=== PATIENT | female | born 1960 ===

== ENCOUNTER 2022-02-06 15:17 | Outpatient (REF) | payer OTHER, SELFPAY ==
[2022-02-06 15:34] LABS: Appearance Urine CLEAR; Color Urine YELLOW; Glucose Urine UA NEG (NEG); Leukocyte Esterase Urine 3+ (NEG); Nitrite Urine POS (NEG); PH 6.5 (5.0-8.0); Specific Gravity - Urine <= 1.005 (1.005-1.025); Urine Blood TRACE (NEG); Urine Ketones NEG (NEG); Urine Protein NEG (NEG-TRACE)
[2022-02-06 15:53] LABS: Bacteria Urine 2+ /LPF; Calcium Oxalate Crystals Urine 1+ /LPF; Mucus Urine TRACE /LPF; Squamous Epithelial Cell Urine TRACE /LPF
[2022-02-06 15:54] LABS: WBC Clumps Urine NOTED
== END 2022-02-06 15:18 | disposition home or self-care (01) ==
LOC: HO.LNP 15:17
PROVIDERS: Visit Provider Family Medicine
DX: R41.82 Altered mental status, unspecified (principal)
CPT/HCPCS: 81001; 87086

== ENCOUNTER 2022-02-11 06:13 | Outpatient (REF) | payer OTHER, SELFPAY ==
[2022-02-11 06:18] LABS: MANUAL DIFF FLAG NO
[2022-02-11 06:49] LABS: Basophils Percent Auto 0.3 % (0-2); Eosinophils Absolute Auto 0.2 X10*3/uL (0.0-0.4); Eosinophils Percent Auto 3.6 % (0-4); Hematocrit 33.7 % (37.0-47.0); Hemoglobin 10.1 g/dl (12.0-16.0); Imm Gran Abs Auto 0.03 X10*3/uL (0.00-0.03); Imm Gran Pct Auto 0.5 % (0.0-0.4); Lymphocytes Absolute Auto 1.4 X10*3/uL (1.2-4.9); Lymphocytes Percent Auto 20.4 % (20-40); Mean Corpuscular Hemoglobin 24.4 pg (27.0-33.0); Mean Corpuscular Volume 81.4 fL (80.0-98.0); Mean Platelet Volume 10.6 fL (9.4-12.3); Monocytes Absolute Auto 0.5 X10*3/uL (0.1-1.2); Neutrophils Absolute Auto 4.5 x10*3/uL (2.0-8.3); Neutrophils Percent Auto 67.2 % (45-73); Platelet Count 286 X10*3/uL (160-400); Red Blood Count 4.14 X10*6/uL (4.20-5.50); White Blood Count 6.6 X10*3/uL (4.8-10.8)
[2022-02-11 07:03] LABS: Anion Gap 12 (12-20); Blood Urea Nitrogen 13 mg/dL (9-16); Carbon Dioxide 28 mmol/L (22-29); Chloride 105 mmol/L (96-108); Estimated Glomerular Filt Rate > 60; Glucose Random 93 mg/dL (60-115); Potassium 4.8 mmol/L (3.3-5.1); Sodium 140 mmol/L (135-145)
== END 2022-02-11 06:14 | disposition home or self-care (01) ==
LOC: HO.MMNH2L 06:13
PROVIDERS: Visit Provider Family Medicine
DX: I10 Essential (primary) hypertension (principal)
CPT/HCPCS: 36415; 80048; 85025

== ENCOUNTER 2022-02-16 06:21 | Outpatient (REF) | payer OTHER, SELFPAY ==
[2022-02-16 06:35] LABS: MANUAL DIFF FLAG NO
[2022-02-16 06:55] LABS: Basophils Percent Auto 0.6 % (0-2); Eosinophils Absolute Auto 0.2 X10*3/uL (0.0-0.4); Eosinophils Percent Auto 3.2 % (0-4); Hemoglobin 10.7 g/dl (12.0-16.0); Imm Gran Abs Auto 0.02 X10*3/uL (0.00-0.03); Imm Gran Pct Auto 0.3 % (0.0-0.4); Lymphocytes Absolute Auto 1.4 X10*3/uL (1.2-4.9); Lymphocytes Percent Auto 19.6 % (20-40); Mean Corpuscular HGB Conc 30.6 g/dl (31.0-35.0); Mean Corpuscular Hemoglobin 24.8 pg (27.0-33.0); Mean Corpuscular Volume 81.2 fL (80.0-98.0); Mean Platelet Volume 10.4 fL (9.4-12.3); Monocytes Absolute Auto 0.5 X10*3/uL (0.1-1.2); Monocytes Percent Auto 7.2 % (2-11); Neutrophils Percent Auto 69.1 % (45-73); Platelet Count 301 X10*3/uL (160-400); Red Blood Count 4.31 X10*6/uL (4.20-5.50); Red Cell Distribution Width 20.8 % (11.0-16.0); White Blood Count 7.3 X10*3/uL (4.8-10.8)
[2022-02-16 07:23] LABS: Anion Gap 14 (12-20); Blood Urea Nitrogen 14 mg/dL (9-16); Calcium 9.6 mg/dL (8.4-10.2); Carbon Dioxide 25 mmol/L (22-29); Chloride 104 mmol/L (96-108); Estimated Glomerular Filt Rate > 60; Glucose Random 95 mg/dL (60-115); Potassium 4.2 mmol/L (3.3-5.1); Sodium 139 mmol/L (135-145)
[2022-02-16 16:08] LABS: Appearance Urine CLEAR; Color Urine YELLOW; Glucose Urine UA NEG (NEG); Leukocyte Esterase Urine 2+ (NEG); Nitrite Urine NEG (NEG); Urine Blood 1+ (NEG); Urine Ketones NEG (NEG); Urine Protein NEG (NEG-TRACE)
[2022-02-16 16:18] LABS: Amorphous Sediment Urine 1+ /LPF; Squamous Epithelial Cell Urine 1+ /LPF
[2022-02-16 16:20] LABS: Bacteria Urine 1+ /LPF
== END 2022-02-16 06:22 | disposition home or self-care (01) ==
LOC: HO.MMNH2L 06:21
PROVIDERS: Visit Provider Family Medicine
DX: R41.82 Altered mental status, unspecified (principal)
CPT/HCPCS: 36415; 80048; 81001; 81003; 85025; 87086; 87088; 87186

== ENCOUNTER 2022-02-23 07:00 | Outpatient (REF) | payer OTHER, SELFPAY ==
[2022-02-23 06:35] LABS: Hematocrit 34.5 % (37.0-47.0); Hemoglobin 10.5 g/dl (12.0-16.0); Mean Corpuscular HGB Conc 30.4 g/dl (31.0-35.0); Mean Corpuscular Hemoglobin 24.7 pg (27.0-33.0); Mean Corpuscular Volume 81.2 fL (80.0-98.0); Platelet Count 284 X10*3/uL (160-400); Red Blood Count 4.25 X10*6/uL (4.20-5.50); Red Cell Distribution Width 19.7 % (11.0-16.0); White Blood Count 7.5 X10*3/uL (4.8-10.8)
[2022-02-23 07:11] LABS: Anion Gap 13 (12-20); Blood Urea Nitrogen 10 mg/dL (9-16); Calcium 9.2 mg/dL (8.4-10.2); Carbon Dioxide 27 mmol/L (22-29); Chloride 106 mmol/L (96-108); Estimated Glomerular Filt Rate > 60; Glucose Random 86 mg/dL (60-115); Potassium 4.1 mmol/L (3.3-5.1); Sodium 142 mmol/L (135-145)
== END 2022-02-23 07:01 | disposition home or self-care (01) ==
LOC: HO.MMNH2L 07:00
PROVIDERS: Visit Provider Family Medicine
DX: I10 Essential (primary) hypertension (principal)
CPT/HCPCS: 36415; 80048; 85027

== ENCOUNTER 2022-03-02 06:21 | Outpatient (REF) | payer OTHER, SELFPAY ==
[2022-03-02 06:24] LABS: MANUAL DIFF FLAG NO
[2022-03-02 06:45] LABS: Basophils Percent Auto 0.4 % (0-2); Eosinophils Absolute Auto 0.2 X10*3/uL (0.0-0.4); Eosinophils Percent Auto 3.1 % (0-4); Hemoglobin 10.3 g/dl (12.0-16.0); Imm Gran Abs Auto 0.03 X10*3/uL (0.00-0.03); Imm Gran Pct Auto 0.4 % (0.0-0.4); Lymphocytes Absolute Auto 1.6 X10*3/uL (1.2-4.9); Lymphocytes Percent Auto 23.9 % (20-40); Mean Corpuscular HGB Conc 30.3 g/dl (31.0-35.0); Mean Corpuscular Hemoglobin 24.3 pg (27.0-33.0); Mean Corpuscular Volume 80.4 fL (80.0-98.0); Mean Platelet Volume 10.7 fL (9.4-12.3); Monocytes Absolute Auto 0.5 X10*3/uL (0.1-1.2); Monocytes Percent Auto 7.3 % (2-11); Neutrophils Absolute Auto 4.4 x10*3/uL (2.0-8.3); Neutrophils Percent Auto 64.9 % (45-73); Platelet Count 247 X10*3/uL (160-400); Red Blood Count 4.23 X10*6/uL (4.20-5.50); Red Cell Distribution Width 19.2 % (11.0-16.0); White Blood Count 6.8 X10*3/uL (4.8-10.8)
[2022-03-02 07:15] LABS: Anion Gap 12 (12-20); Blood Urea Nitrogen 9 mg/dL (9-16); Calcium 9.3 mg/dL (8.4-10.2); Carbon Dioxide 26 mmol/L (22-29); Chloride 105 mmol/L (96-108); Estimated Glomerular Filt Rate > 60; Glucose Random 94 mg/dL (60-115); Potassium 4.3 mmol/L (3.3-5.1); Sodium 139 mmol/L (135-145)
== END 2022-03-02 06:22 | disposition home or self-care (01) ==
LOC: HO.MMNH2L 06:21
PROVIDERS: Visit Provider Family Medicine
DX: I10 Essential (primary) hypertension (principal)
CPT/HCPCS: 36415; 80048; 85025

== ENCOUNTER 2022-03-09 06:41 | Outpatient (REF) | payer OTHER, SELFPAY ==
[2022-03-09 06:33] LABS: MANUAL DIFF FLAG NO
[2022-03-09 07:01] LABS: Anion Gap 14 (12-20); Basophils Percent Auto 0.5 % (0-2); Blood Urea Nitrogen 12 mg/dL (9-16); Calcium 9.3 mg/dL (8.4-10.2); Carbon Dioxide 26 mmol/L (22-29); Chloride 107 mmol/L (96-108); Eosinophils Absolute Auto 0.3 X10*3/uL (0.0-0.4); Eosinophils Percent Auto 4.7 % (0-4); Estimated Glomerular Filt Rate > 60; Glucose Random 93 mg/dL (60-115); Hematocrit 34.7 % (37.0-47.0); Hemoglobin 10.6 g/dl (12.0-16.0); Imm Gran Abs Auto 0.01 X10*3/uL (0.00-0.03); Imm Gran Pct Auto 0.2 % (0.0-0.4); Lymphocytes Absolute Auto 1.9 X10*3/uL (1.2-4.9); Mean Corpuscular HGB Conc 30.5 g/dl (31.0-35.0); Mean Corpuscular Hemoglobin 24.5 pg (27.0-33.0); Mean Corpuscular Volume 80.3 fL (80.0-98.0); Monocytes Absolute Auto 0.5 X10*3/uL (0.1-1.2); Monocytes Percent Auto 9.1 % (2-11); Neutrophils Absolute Auto 3.2 x10*3/uL (2.0-8.3); Neutrophils Percent Auto 53.5 % (45-73); Platelet Count 241 X10*3/uL (160-400); Potassium 4.2 mmol/L (3.3-5.1); Red Blood Count 4.32 X10*6/uL (4.20-5.50); Red Cell Distribution Width 17.9 % (11.0-16.0); Sodium 143 mmol/L (135-145); White Blood Count 5.9 X10*3/uL (4.8-10.8)
== END 2022-03-09 06:42 | disposition home or self-care (01) ==
LOC: HO.MMNH2L 06:41
PROVIDERS: Visit Provider Family Medicine
DX: I10 Essential (primary) hypertension (principal)
CPT/HCPCS: 36415; 80048; 85025

== ENCOUNTER 2022-03-16 06:40 | Outpatient (REF) | payer OTHER, SELFPAY ==
[2022-03-16 06:19] LABS: MANUAL DIFF FLAG NO
[2022-03-16 07:16] LABS: Basophils Percent Auto 0.5 % (0-2); Eosinophils Absolute Auto 0.2 X10*3/uL (0.0-0.4); Eosinophils Percent Auto 3.8 % (0-4); Hemoglobin 9.8 g/dl (12.0-16.0); Imm Gran Abs Auto 0.01 X10*3/uL (0.00-0.03); Imm Gran Pct Auto 0.2 % (0.0-0.4); Lymphocytes Absolute Auto 1.7 X10*3/uL (1.2-4.9); Lymphocytes Percent Auto 31.5 % (20-40); Mean Corpuscular HGB Conc 30.6 g/dl (31.0-35.0); Mean Corpuscular Hemoglobin 24.9 pg (27.0-33.0); Mean Corpuscular Volume 81.4 fL (80.0-98.0); Mean Platelet Volume 11.4 fL (9.4-12.3); Monocytes Absolute Auto 0.4 X10*3/uL (0.1-1.2); Monocytes Percent Auto 7.9 % (2-11); Neutrophils Absolute Auto 3.1 x10*3/uL (2.0-8.3); Neutrophils Percent Auto 56.1 % (45-73); Platelet Count 216 X10*3/uL (160-400); Red Blood Count 3.93 X10*6/uL (4.20-5.50); Red Cell Distribution Width 17.5 % (11.0-16.0); White Blood Count 5.5 X10*3/uL (4.8-10.8)
[2022-03-16 07:24] LABS: Anion Gap 15 (12-20); Blood Urea Nitrogen 12 mg/dL (9-16); Calcium 8.9 mg/dL (8.4-10.2); Carbon Dioxide 23 mmol/L (22-29); Chloride 107 mmol/L (96-108); Estimated Glomerular Filt Rate > 60; Glucose Random 81 mg/dL (60-115); Potassium 4.2 mmol/L (3.3-5.1); Sodium 141 mmol/L (135-145)
== END 2022-03-16 06:41 | disposition home or self-care (01) ==
LOC: HO.MMNH2L 06:40
PROVIDERS: Visit Provider Family Medicine
DX: I10 Essential (primary) hypertension (principal)
CPT/HCPCS: 36415; 80048; 85025

== ENCOUNTER 2022-03-23 06:24 | Outpatient (REF) | payer OTHER, SELFPAY ==
[2022-03-23 06:13] LABS: MANUAL DIFF FLAG NO
[2022-03-23 06:20] LABS: Basophils Percent Auto 0.5 % (0-2); Eosinophils Absolute Auto 0.2 X10*3/uL (0.0-0.4); Eosinophils Percent Auto 3.9 % (0-4); Hematocrit 31.4 % (37.0-47.0); Hemoglobin 9.6 g/dl (12.0-16.0); Imm Gran Abs Auto 0.02 X10*3/uL (0.00-0.03); Imm Gran Pct Auto 0.4 % (0.0-0.4); Lymphocytes Absolute Auto 1.8 X10*3/uL (1.2-4.9); Lymphocytes Percent Auto 32.2 % (20-40); Mean Corpuscular HGB Conc 30.6 g/dl (31.0-35.0); Mean Corpuscular Volume 81.8 fL (80.0-98.0); Mean Platelet Volume 10.5 fL (9.4-12.3); Monocytes Absolute Auto 0.5 X10*3/uL (0.1-1.2); Monocytes Percent Auto 8.4 % (2-11); Neutrophils Absolute Auto 3.1 x10*3/uL (2.0-8.3); Neutrophils Percent Auto 54.6 % (45-73); Platelet Count 232 X10*3/uL (160-400); Red Blood Count 3.84 X10*6/uL (4.20-5.50); Red Cell Distribution Width 16.7 % (11.0-16.0); White Blood Count 5.6 X10*3/uL (4.8-10.8)
[2022-03-23 07:09] LABS: Anion Gap 14 (12-20); Blood Urea Nitrogen 10 mg/dL (9-16); Carbon Dioxide 26 mmol/L (22-29); Chloride 107 mmol/L (96-108); Estimated Glomerular Filt Rate > 60; Glucose Random 93 mg/dL (60-115); Potassium 4.3 mmol/L (3.3-5.1); Sodium 143 mmol/L (135-145)
== END 2022-03-23 06:25 | disposition home or self-care (01) ==
LOC: HO.MMNH2L 06:24
PROVIDERS: Visit Provider Family Medicine
DX: I10 Essential (primary) hypertension (principal)
CPT/HCPCS: 36415; 80048; 85025

== ENCOUNTER 2022-03-30 06:31 | Outpatient (REF) | payer OTHER, SELFPAY ==
[2022-03-30 06:17] LABS: MANUAL DIFF FLAG NO
[2022-03-30 06:29] LABS: Basophils Percent Auto 0.4 % (0-2); Eosinophils Absolute Auto 0.1 X10*3/uL (0.0-0.4); Hematocrit 29.7 % (37.0-47.0); Imm Gran Abs Auto 0.01 X10*3/uL (0.00-0.03); Imm Gran Pct Auto 0.2 % (0.0-0.4); Lymphocytes Absolute Auto 1.4 X10*3/uL (1.2-4.9); Lymphocytes Percent Auto 29.7 % (20-40); Mean Corpuscular HGB Conc 30.3 g/dl (31.0-35.0); Mean Corpuscular Hemoglobin 24.8 pg (27.0-33.0); Mean Corpuscular Volume 81.8 fL (80.0-98.0); Mean Platelet Volume 10.6 fL (9.4-12.3); Monocytes Absolute Auto 0.5 X10*3/uL (0.1-1.2); Monocytes Percent Auto 10.6 % (2-11); Neutrophils Absolute Auto 2.7 x10*3/uL (2.0-8.3); Neutrophils Percent Auto 56.1 % (45-73); Platelet Count 244 X10*3/uL (160-400); Red Blood Count 3.63 X10*6/uL (4.20-5.50); White Blood Count 4.7 X10*3/uL (4.8-10.8)
[2022-03-30 06:49] LABS: Anion Gap 13 (12-20); Blood Urea Nitrogen 10 mg/dL (9-16); Calcium 9.3 mg/dL (8.4-10.2); Carbon Dioxide 26 mmol/L (22-29); Chloride 108 mmol/L (96-108); Estimated Glomerular Filt Rate > 60; Glucose Random 88 mg/dL (60-115); Potassium 4.4 mmol/L (3.3-5.1); Sodium 143 mmol/L (135-145)
== END 2022-03-30 06:32 | disposition home or self-care (01) ==
LOC: HO.MMNH2L 06:31
PROVIDERS: Visit Provider Family Medicine
DX: I10 Essential (primary) hypertension (principal)
CPT/HCPCS: 36415; 80048; 85025

== ENCOUNTER 2022-04-06 06:30 | Outpatient (REF) | payer OTHER, SELFPAY ==
[2022-04-06 06:24] LABS: MANUAL DIFF FLAG NO
[2022-04-06 06:45] LABS: Basophils Percent Auto 0.4 % (0-2); Eosinophils Absolute Auto 0.1 X10*3/uL (0.0-0.4); Eosinophils Percent Auto 2.6 % (0-4); Hematocrit 25.7 % (37.0-47.0); Hemoglobin 7.9 g/dl (12.0-16.0); Imm Gran Abs Auto 0.01 X10*3/uL (0.00-0.03); Imm Gran Pct Auto 0.2 % (0.0-0.4); Lymphocytes Absolute Auto 1.8 X10*3/uL (1.2-4.9); Lymphocytes Percent Auto 33.5 % (20-40); Mean Corpuscular HGB Conc 30.7 g/dl (31.0-35.0); Mean Corpuscular Volume 81.3 fL (80.0-98.0); Mean Platelet Volume 10.6 fL (9.4-12.3); Monocytes Absolute Auto 0.4 X10*3/uL (0.1-1.2); Monocytes Percent Auto 7.6 % (2-11); Neutrophils Percent Auto 55.7 % (45-73); Platelet Count 252 X10*3/uL (160-400); Red Blood Count 3.16 X10*6/uL (4.20-5.50); Red Cell Distribution Width 15.5 % (11.0-16.0); White Blood Count 5.3 X10*3/uL (4.8-10.8)
[2022-04-06 06:49] LABS: Anion Gap 12 (12-20); Blood Urea Nitrogen 10 mg/dL (9-16); Calcium 8.8 mg/dL (8.4-10.2); Carbon Dioxide 27 mmol/L (22-29); Chloride 108 mmol/L (96-108); Estimated Glomerular Filt Rate > 60; Glucose Random 94 mg/dL (60-115); Potassium 4.4 mmol/L (3.3-5.1); Sodium 143 mmol/L (135-145)
== END 2022-04-06 06:31 | disposition home or self-care (01) ==
LOC: HO.MMNH2L 06:30
PROVIDERS: Visit Provider Family Medicine
DX: I10 Essential (primary) hypertension (principal)
CPT/HCPCS: 36415; 80048; 85025

== ENCOUNTER 2022-04-14 06:22 | Outpatient (REF) | payer OTHER, SELFPAY ==
[2022-04-14 06:26] LABS: MANUAL DIFF FLAG NO
[2022-04-14 06:47] LABS: Basophils Percent Auto 0.2 % (0-2); Eosinophils Absolute Auto 0.1 X10*3/uL (0.0-0.4); Eosinophils Percent Auto 2.3 % (0-4); Hematocrit 26.1 % (37.0-47.0); Hemoglobin 7.7 g/dl (12.0-16.0); Imm Gran Abs Auto 0.02 X10*3/uL (0.00-0.03); Imm Gran Pct Auto 0.4 % (0.0-0.4); Lymphocytes Absolute Auto 1.5 X10*3/uL (1.2-4.9); Lymphocytes Percent Auto 29.7 % (20-40); Mean Corpuscular HGB Conc 29.5 g/dl (31.0-35.0); Mean Corpuscular Hemoglobin 23.9 pg (27.0-33.0); Mean Corpuscular Volume 81.1 fL (80.0-98.0); Mean Platelet Volume 10.6 fL (9.4-12.3); Monocytes Absolute Auto 0.4 X10*3/uL (0.1-1.2); Monocytes Percent Auto 8.1 % (2-11); Neutrophils Absolute Auto 3.1 x10*3/uL (2.0-8.3); Neutrophils Percent Auto 59.3 % (45-73); Platelet Count 251 X10*3/uL (160-400); Red Blood Count 3.22 X10*6/uL (4.20-5.50); Red Cell Distribution Width 14.9 % (11.0-16.0); White Blood Count 5.2 X10*3/uL (4.8-10.8)
[2022-04-14 07:27] LABS: Anion Gap 14 (12-20); Blood Urea Nitrogen 18 mg/dL (9-16); Calcium 8.8 mg/dL (8.4-10.2); Carbon Dioxide 23 mmol/L (22-29); Chloride 108 mmol/L (96-108); Estimated Glomerular Filt Rate > 60; Glucose Random 89 mg/dL (60-115); Potassium 4.2 mmol/L (3.3-5.1); Sodium 141 mmol/L (135-145)
== END 2022-04-14 06:23 | disposition home or self-care (01) ==
LOC: HO.MMNH2L 06:22
PROVIDERS: Visit Provider Family Medicine
DX: I10 Essential (primary) hypertension (principal)
CPT/HCPCS: 36415; 80048; 85025

== ENCOUNTER 2022-04-20 07:04 | Outpatient (REF) | payer OTHER, SELFPAY ==
[2022-04-20 06:52] LABS: MANUAL DIFF FLAG NO
[2022-04-20 07:40] LABS: Basophils Percent Auto 0.2 % (0-2); Eosinophils Absolute Auto 0.1 X10*3/uL (0.0-0.4); Eosinophils Percent Auto 2.5 % (0-4); Hematocrit 21.5 % (37.0-47.0); Imm Gran Abs Auto 0.02 X10*3/uL (0.00-0.03); Imm Gran Pct Auto 0.4 % (0.0-0.4); Lymphocytes Absolute Auto 1.4 X10*3/uL (1.2-4.9); Lymphocytes Percent Auto 29.2 % (20-40); Mean Corpuscular HGB Conc 30.2 g/dl (31.0-35.0); Mean Corpuscular Hemoglobin 24.2 pg (27.0-33.0); Mean Corpuscular Volume 79.9 fL (80.0-98.0); Mean Platelet Volume 10.8 fL (9.4-12.3); Monocytes Absolute Auto 0.4 X10*3/uL (0.1-1.2); Monocytes Percent Auto 8.4 % (2-11); Neutrophils Absolute Auto 2.8 x10*3/uL (2.0-8.3); Neutrophils Percent Auto 59.3 % (45-73); Platelet Count 238 X10*3/uL (160-400); Red Blood Count 2.69 X10*6/uL (4.20-5.50); Red Cell Distribution Width 15.1 % (11.0-16.0); White Blood Count 4.8 X10*3/uL (4.8-10.8)
[2022-04-20 07:55] LABS: Anion Gap 13 (12-20); Blood Urea Nitrogen 13 mg/dL (9-16); Calcium 8.7 mg/dL (8.4-10.2); Carbon Dioxide 26 mmol/L (22-29); Chloride 110 mmol/L (96-108); Estimated Glomerular Filt Rate > 60; Glucose Random 86 mg/dL (60-115); Hemoglobin 6.5 g/dl (12.0-16.0); Potassium 4.6 mmol/L (3.3-5.1); Sodium 144 mmol/L (135-145)
[2022-04-20 10:25] LABS: MANUAL DIFF FLAG NO
[2022-04-20 10:38] LABS: Basophils Percent Auto 0.4 % (0-2); Eosinophils Absolute Auto 0.1 X10*3/uL (0.0-0.4); Eosinophils Percent Auto 1.7 % (0-4); Hematocrit 25.2 % (37.0-47.0); Hemoglobin 7.6 g/dl (12.0-16.0); Imm Gran Abs Auto 0.01 X10*3/uL (0.00-0.03); Imm Gran Pct Auto 0.2 % (0.0-0.4); Lymphocytes Absolute Auto 1.4 X10*3/uL (1.2-4.9); Lymphocytes Percent Auto 26.6 % (20-40); Mean Corpuscular HGB Conc 30.2 g/dl (31.0-35.0); Mean Corpuscular Hemoglobin 23.7 pg (27.0-33.0); Mean Corpuscular Volume 78.5 fL (80.0-98.0); Mean Platelet Volume 10.3 fL (9.4-12.3); Monocytes Absolute Auto 0.3 X10*3/uL (0.1-1.2); Monocytes Percent Auto 6.4 % (2-11); Neutrophils Absolute Auto 3.4 x10*3/uL (2.0-8.3); Neutrophils Percent Auto 64.7 % (45-73); Platelet Count 265 X10*3/uL (160-400); Red Blood Count 3.21 X10*6/uL (4.20-5.50); White Blood Count 5.3 X10*3/uL (4.8-10.8)
== END 2022-04-20 07:05 | disposition home or self-care (01) ==
LOC: HO.MMNH2L 07:04
PROVIDERS: Visit Provider Family Medicine
DX: I10 Essential (primary) hypertension (principal)
CPT/HCPCS: 36415; 80048; 85025

== ENCOUNTER 2022-05-11 07:41 | Outpatient (REF) | payer OTHER, SELFPAY ==
[2022-05-11 07:20] LABS: MANUAL DIFF FLAG NO
[2022-05-11 07:40] LABS: Basophils Percent Auto 0.4 % (0-2); Eosinophils Absolute Auto 0.1 X10*3/uL (0.0-0.4); Eosinophils Percent Auto 1.4 % (0-4); Hematocrit 21.7 % (37.0-47.0); Imm Gran Abs Auto 0.02 X10*3/uL (0.00-0.03); Imm Gran Pct Auto 0.4 % (0.0-0.4); Lymphocytes Absolute Auto 1.3 X10*3/uL (1.2-4.9); Lymphocytes Percent Auto 23.1 % (20-40); Mean Corpuscular HGB Conc 27.2 g/dl (31.0-35.0); Mean Corpuscular Hemoglobin 22.7 pg (27.0-33.0); Mean Corpuscular Volume 83.5 fL (80.0-98.0); Mean Platelet Volume 10.6 fL (9.4-12.3); Monocytes Absolute Auto 0.4 X10*3/uL (0.1-1.2); Monocytes Percent Auto 7.1 % (2-11); Neutrophils Absolute Auto 3.8 x10*3/uL (2.0-8.3); Neutrophils Percent Auto 67.6 % (45-73); Platelet Count 291 X10*3/uL (160-400); White Blood Count 5.6 X10*3/uL (4.8-10.8)
[2022-05-11 08:07] LABS: Anion Gap 12 (12-20); Blood Urea Nitrogen 14 mg/dL (9-16); Calcium 8.6 mg/dL (8.4-10.2); Carbon Dioxide 25 mmol/L (22-29); Chloride 107 mmol/L (96-108); Estimated Glomerular Filt Rate > 60; Glucose Random 93 mg/dL (60-115); Potassium 4.2 mmol/L (3.3-5.1); Sodium 140 mmol/L (135-145)
[2022-05-11 08:38] LABS: Hemoglobin 5.9 g/dl (12.0-16.0)
== END 2022-05-11 07:42 | disposition home or self-care (01) ==
LOC: HO.MMNH2L 07:41
PROVIDERS: Visit Provider Family Medicine
DX: Z86.73 Personal history of transient ischemic attack (TIA), and cerebral infarction without residual deficits (principal)
CPT/HCPCS: 36415; 80048; 85025

== ENCOUNTER 2022-05-12 05:29 | Outpatient (REF) | payer OTHER, SELFPAY ==
[2022-05-12 05:38] LABS: MANUAL DIFF FLAG NO
[2022-05-12 05:42] LABS: Basophils Percent Auto 0.2 % (0-2); Eosinophils Absolute Auto 0.1 X10*3/uL (0.0-0.4); Eosinophils Percent Auto 1.9 % (0-4); Hematocrit 21.1 % (37.0-47.0); Imm Gran Abs Auto 0.01 X10*3/uL (0.00-0.03); Imm Gran Pct Auto 0.2 % (0.0-0.4); Lymphocytes Absolute Auto 1.1 X10*3/uL (1.2-4.9); Mean Corpuscular HGB Conc 27.5 g/dl (31.0-35.0); Mean Corpuscular Volume 83.7 fL (80.0-98.0); Mean Platelet Volume 10.2 fL (9.4-12.3); Monocytes Absolute Auto 0.4 X10*3/uL (0.1-1.2); Monocytes Percent Auto 8.8 % (2-11); Neutrophils Absolute Auto 3.2 x10*3/uL (2.0-8.3); Neutrophils Percent Auto 65.9 % (45-73); Platelet Count 271 X10*3/uL (160-400); Red Blood Count 2.52 X10*6/uL (4.20-5.50); White Blood Count 4.8 X10*3/uL (4.8-10.8)
[2022-05-12 08:05] LABS: Hemoglobin 5.8 g/dl (12.0-16.0)
== END 2022-05-12 05:30 | disposition home or self-care (01) ==
LOC: HO.MMNH2L 05:29
PROVIDERS: Visit Provider Family Medicine
DX: I10 Essential (primary) hypertension (principal); F32.9 Major depressive disorder, single episode, unspecified
CPT/HCPCS: 36415; 85025

== ENCOUNTER 2022-05-18 06:48 | Outpatient (REF) | payer OTHER, SELFPAY ==
[2022-05-18 06:51] LABS: MANUAL DIFF FLAG NO
[2022-05-18 07:17] LABS: Basophils Percent Auto 0.6 % (0-2); Eosinophils Absolute Auto 0.1 X10*3/uL (0.0-0.4); Eosinophils Percent Auto 1.4 % (0-4); Hematocrit 29.5 % (37.0-47.0); Hemoglobin 8.4 g/dl (12.0-16.0); Imm Gran Abs Auto 0.02 X10*3/uL (0.00-0.03); Imm Gran Pct Auto 0.4 % (0.0-0.4); Lymphocytes Absolute Auto 1.3 X10*3/uL (1.2-4.9); Lymphocytes Percent Auto 24.8 % (20-40); Mean Corpuscular HGB Conc 28.5 g/dl (31.0-35.0); Mean Corpuscular Hemoglobin 24.9 pg (27.0-33.0); Mean Corpuscular Volume 87.3 fL (80.0-98.0); Mean Platelet Volume 10.8 fL (9.4-12.3); Monocytes Absolute Auto 0.3 X10*3/uL (0.1-1.2); Monocytes Percent Auto 6.6 % (2-11); Neutrophils Absolute Auto 3.4 x10*3/uL (2.0-8.3); Neutrophils Percent Auto 66.2 % (45-73); Platelet Count 219 X10*3/uL (160-400); Red Blood Count 3.38 X10*6/uL (4.20-5.50); Red Cell Distribution Width 21.6 % (11.0-16.0); White Blood Count 5.2 X10*3/uL (4.8-10.8)
[2022-05-18 07:30] LABS: Alanine Aminotransferase 19 U/L (0-31); Albumin Level 3.8 g/dL (3.5-5.0); Alkaline Phosphatase 107 U/L (39-117); Anion Gap 15 (12-20); Aspartate Amino Transferase 12 U/L (5-31); Bilirubin Total 0.5 mg/dL (0.0-1.0); Blood Urea Nitrogen 7 mg/dL (9-16); Calcium 9.1 mg/dL (8.4-10.2); Carbon Dioxide 25 mmol/L (22-29); Chloride 105 mmol/L (96-108); Estimated Glomerular Filt Rate > 60; Glucose Random 113 mg/dL (60-115); Potassium 3.8 mmol/L (3.3-5.1); Sodium 141 mmol/L (135-145); Total Protein 6.3 g/dL (6.5-8.0)
== END 2022-05-18 06:49 | disposition home or self-care (01) ==
LOC: HO.MMNH2L 06:48
PROVIDERS: Visit Provider Family Medicine
DX: I10 Essential (primary) hypertension (principal)
CPT/HCPCS: 36415; 80053; 85025

== ENCOUNTER 2022-05-27 14:38 | Outpatient (REF) | payer OTHER, SELFPAY ==
[2022-05-27 15:16] LABS: Appearance Urine Clear; Color Urine Yellow; Glucose Urine UA Negative (Negative); Leukocyte Esterase Urine Negative (Negative); Nitrite Urine Negative (Negative); Specific Gravity - Urine <= 1.005 (1.005-1.025); Urine Blood Negative (Negative); Urine Ketones Negative (Negative); Urine Protein Negative (Neg-Trace)
== END 2022-05-27 14:39 | disposition home or self-care (01) ==
LOC: HO.MMNH2L 14:38
PROVIDERS: Visit Provider Family Medicine
DX: R35.0 Frequency of micturition (principal)
CPT/HCPCS: 81003; 87086

== ENCOUNTER 2022-06-08 06:13 | Outpatient (REF) | payer OTHER, SELFPAY ==
[2022-06-08 06:49] LABS: Hematocrit 37.6 % (37.0-47.0); Hemoglobin 11.5 g/dl (12.0-16.0); Mean Corpuscular HGB Conc 30.6 g/dl (31.0-35.0); Mean Corpuscular Hemoglobin 26.6 pg (27.0-33.0); Mean Platelet Volume 10.9 fL (9.4-12.3); Platelet Count 182 X10*3/uL (160-400); Red Blood Count 4.32 X10*6/uL (4.20-5.50); Red Cell Distribution Width 20.1 % (11.0-16.0); White Blood Count 6.7 X10*3/uL (4.8-10.8)
[2022-06-08 07:07] LABS: Anion Gap 14 (12-20); Blood Urea Nitrogen 12 mg/dL (9-16); Calcium 9.5 mg/dL (8.4-10.2); Carbon Dioxide 26 mmol/L (22-29); Chloride 105 mmol/L (96-108); Estimated Glomerular Filt Rate > 60; Glucose Random 87 mg/dL (60-115); Potassium 4.3 mmol/L (3.3-5.1); Sodium 141 mmol/L (135-145)
== END 2022-06-08 06:14 | disposition home or self-care (01) ==
LOC: HO.MMNH2L 06:13
PROVIDERS: Visit Provider Family Medicine
DX: I63.542 Cerebral infarction due to unspecified occlusion or stenosis of left cerebellar artery (principal)
CPT/HCPCS: 36415; 80048; 85027

== ENCOUNTER 2022-08-10 06:23 | Outpatient (REF) | payer OTHER, SELFPAY ==
[2022-08-10 06:23] LABS: MANUAL DIFF FLAG NO
[2022-08-10 06:38] LABS: Basophils Percent Auto 0.4 % (0-2); Eosinophils Absolute Auto 0.1 X10*3/uL (0.0-0.4); Eosinophils Percent Auto 1.6 % (0-4); Hematocrit 39.4 % (37.0-47.0); Hemoglobin 12.9 g/dl (12.0-16.0); Imm Gran Abs Auto 0.02 X10*3/uL (0.00-0.03); Imm Gran Pct Auto 0.4 % (0.0-0.4); Lymphocytes Absolute Auto 1.3 X10*3/uL (1.2-4.9); Lymphocytes Percent Auto 24.5 % (20-40); Mean Corpuscular HGB Conc 32.7 g/dl (31.0-35.0); Mean Corpuscular Hemoglobin 28.9 pg (27.0-33.0); Mean Corpuscular Volume 88.1 fL (80.0-98.0); Mean Platelet Volume 10.5 fL (9.4-12.3); Monocytes Absolute Auto 0.5 X10*3/uL (0.1-1.2); Monocytes Percent Auto 8.2 % (2-11); Neutrophils Absolute Auto 3.5 x10*3/uL (2.0-8.3); Neutrophils Percent Auto 64.9 % (45-73); Platelet Count 152 X10*3/uL (160-400); Red Blood Count 4.47 X10*6/uL (4.20-5.50); Red Cell Distribution Width 16.2 % (11.0-16.0); White Blood Count 5.5 X10*3/uL (4.8-10.8)
[2022-08-10 07:13] LABS: Anion Gap 14 (12-20); Blood Urea Nitrogen 14 mg/dL (9-16); Carbon Dioxide 24 mmol/L (22-29); Chloride 106 mmol/L (96-108); Estimated Glomerular Filt Rate > 60; Glucose Random 86 mg/dL (60-115); Potassium 4.3 mmol/L (3.3-5.1); Sodium 140 mmol/L (135-145)
== END 2022-08-10 06:24 | disposition home or self-care (01) ==
LOC: HO.MMNH2L 06:23
PROVIDERS: Visit Provider Family Medicine
DX: I63.542 Cerebral infarction due to unspecified occlusion or stenosis of left cerebellar artery (principal)
CPT/HCPCS: 36415; 80048; 85025

== ENCOUNTER 2022-09-15 05:47 | Outpatient (REF) | payer OTHER, SELFPAY ==
[2022-09-15 05:51] LABS: MANUAL DIFF FLAG NO
[2022-09-15 06:03] LABS: Basophils Percent Auto 0.3 % (0-2); Eosinophils Absolute Auto 0.1 X10*3/uL (0.0-0.4); Eosinophils Percent Auto 2.3 % (0-4); Hematocrit 36.4 % (37.0-47.0); Hemoglobin 12.3 g/dl (12.0-16.0); Imm Gran Abs Auto 0.02 X10*3/uL (0.00-0.03); Imm Gran Pct Auto 0.3 % (0.0-0.4); Lymphocytes Absolute Auto 1.3 X10*3/uL (1.2-4.9); Mean Corpuscular HGB Conc 33.8 g/dl (31.0-35.0); Mean Corpuscular Hemoglobin 30.9 pg (27.0-33.0); Mean Corpuscular Volume 91.5 fL (80.0-98.0); Mean Platelet Volume 10.7 fL (9.4-12.3); Monocytes Absolute Auto 0.5 X10*3/uL (0.1-1.2); Neutrophils Percent Auto 67.1 % (45-73); Platelet Count 143 X10*3/uL (160-400); Red Blood Count 3.98 X10*6/uL (4.20-5.50); Red Cell Distribution Width 15.2 % (11.0-16.0)
[2022-09-15 06:17] LABS: Alanine Aminotransferase 16 U/L (0-31); Albumin Level 3.8 g/dL (3.5-5.0); Alkaline Phosphatase 89 U/L (39-117); Anion Gap 14 (12-20); Aspartate Amino Transferase 16 U/L (5-31); Bilirubin Total 0.4 mg/dL (0.0-1.0); Blood Urea Nitrogen 14 mg/dL (9-16); Calcium 9.4 mg/dL (8.4-10.2); Carbon Dioxide 26 mmol/L (22-29); Chloride 105 mmol/L (96-108); Estimated Glomerular Filt Rate > 60; Glucose Random 93 mg/dL (60-115); Potassium 4.2 mmol/L (3.3-5.1); Sodium 141 mmol/L (135-145); Total Protein 6.3 g/dL (6.5-8.0)
== END 2022-09-15 05:48 | disposition home or self-care (01) ==
LOC: HO.MMNH2L 05:47
PROVIDERS: Visit Provider Family Medicine
DX: R56.9 Unspecified convulsions (principal)
CPT/HCPCS: 36415; 80053; 85025

== ENCOUNTER 2022-09-21 06:40 | Outpatient (REF) | payer OTHER, SELFPAY ==
[2022-09-21 06:25] LABS: MANUAL DIFF FLAG NO
[2022-09-21 07:26] LABS: Basophils Percent Auto 0.4 % (0-2); Eosinophils Absolute Auto 0.2 X10*3/uL (0.0-0.4); Eosinophils Percent Auto 4.1 % (0-4); Hemoglobin 12.3 g/dl (12.0-16.0); Imm Gran Abs Auto 0.02 X10*3/uL (0.00-0.03); Imm Gran Pct Auto 0.4 % (0.0-0.4); Lymphocytes Absolute Auto 1.8 X10*3/uL (1.2-4.9); Lymphocytes Percent Auto 31.2 % (20-40); Mean Corpuscular HGB Conc 33.2 g/dl (31.0-35.0); Mean Corpuscular Hemoglobin 30.9 pg (27.0-33.0); Monocytes Absolute Auto 0.5 X10*3/uL (0.1-1.2); Monocytes Percent Auto 8.8 % (2-11); Neutrophils Absolute Auto 3.1 x10*3/uL (2.0-8.3); Neutrophils Percent Auto 55.1 % (45-73); Platelet Count 175 X10*3/uL (160-400); Red Blood Count 3.98 X10*6/uL (4.20-5.50); Red Cell Distribution Width 14.7 % (11.0-16.0); White Blood Count 5.7 X10*3/uL (4.8-10.8)
[2022-09-21 07:52] LABS: Anion Gap 14 (12-20); Blood Urea Nitrogen 16 mg/dL (9-16); Calcium 9.3 mg/dL (8.4-10.2); Carbon Dioxide 28 mmol/L (22-29); Chloride 105 mmol/L (96-108); Estimated Glomerular Filt Rate > 60; Glucose Random 80 mg/dL (60-115); Potassium 4.1 mmol/L (3.3-5.1); Sodium 143 mmol/L (135-145)
== END 2022-09-21 06:41 | disposition home or self-care (01) ==
LOC: HO.MMNH2L 06:40
PROVIDERS: Visit Provider Family Medicine
DX: G40.909 Epilepsy, unspecified, not intractable, without status epilepticus (principal)
CPT/HCPCS: 36415; 80048; 85025

== ENCOUNTER 2022-09-28 07:19 | Outpatient (REF) | payer OTHER, SELFPAY ==
[2022-09-28 06:28] LABS: MANUAL DIFF FLAG NO
[2022-09-28 07:04] LABS: Basophils Percent Auto 0.3 % (0-2); Eosinophils Absolute Auto 0.2 X10*3/uL (0.0-0.4); Eosinophils Percent Auto 2.9 % (0-4); Hemoglobin 12.6 g/dl (12.0-16.0); Imm Gran Abs Auto 0.02 X10*3/uL (0.00-0.03); Imm Gran Pct Auto 0.3 % (0.0-0.4); Lymphocytes Absolute Auto 1.5 X10*3/uL (1.2-4.9); Lymphocytes Percent Auto 26.3 % (20-40); Mean Corpuscular HGB Conc 33.2 g/dl (31.0-35.0); Mean Corpuscular Volume 93.6 fL (80.0-98.0); Mean Platelet Volume 10.7 fL (9.4-12.3); Monocytes Absolute Auto 0.5 X10*3/uL (0.1-1.2); Monocytes Percent Auto 8.8 % (2-11); Neutrophils Absolute Auto 3.5 x10*3/uL (2.0-8.3); Neutrophils Percent Auto 61.4 % (45-73); Platelet Count 200 X10*3/uL (160-400); Red Blood Count 4.06 X10*6/uL (4.20-5.50); Red Cell Distribution Width 14.6 % (11.0-16.0); White Blood Count 5.8 X10*3/uL (4.8-10.8)
[2022-09-28 07:33] LABS: Anion Gap 14 (12-20); Blood Urea Nitrogen 11 mg/dL (9-16); Calcium 9.1 mg/dL (8.4-10.2); Carbon Dioxide 27 mmol/L (22-29); Chloride 104 mmol/L (96-108); Estimated Glomerular Filt Rate > 60; Glucose Random 85 mg/dL (60-115); Potassium 4.1 mmol/L (3.3-5.1); Sodium 141 mmol/L (135-145)
== END 2022-09-28 07:20 | disposition home or self-care (01) ==
LOC: HO.MMNH2L 07:19
PROVIDERS: Visit Provider Family Medicine
DX: I10 Essential (primary) hypertension (principal); E03.9 Hypothyroidism, unspecified
CPT/HCPCS: 36415; 80048; 85025

== ENCOUNTER 2022-10-05 06:10 | Outpatient (REF) | payer OTHER, SELFPAY ==
[2022-10-05 06:02] LABS: MANUAL DIFF FLAG NO
[2022-10-05 06:31] LABS: Anion Gap 11 (12-20); Blood Urea Nitrogen 13 mg/dL (9-16); Carbon Dioxide 28 mmol/L (22-29); Chloride 106 mmol/L (96-108); Estimated Glomerular Filt Rate > 60; Glucose Random 90 mg/dL (60-115); Potassium 4.3 mmol/L (3.3-5.1); Sodium 141 mmol/L (135-145)
[2022-10-05 06:36] LABS: Basophils Percent Auto 0.6 % (0-2); Eosinophils Absolute Auto 0.2 X10*3/uL (0.0-0.4); Eosinophils Percent Auto 3.9 % (0-4); Hematocrit 36.4 % (37.0-47.0); Hemoglobin 12.1 g/dl (12.0-16.0); Imm Gran Abs Auto 0.02 X10*3/uL (0.00-0.03); Imm Gran Pct Auto 0.4 % (0.0-0.4); Lymphocytes Absolute Auto 1.5 X10*3/uL (1.2-4.9); Lymphocytes Percent Auto 28.5 % (20-40); Mean Corpuscular HGB Conc 33.2 g/dl (31.0-35.0); Mean Corpuscular Hemoglobin 31.8 pg (27.0-33.0); Mean Corpuscular Volume 95.8 fL (80.0-98.0); Mean Platelet Volume 10.9 fL (9.4-12.3); Monocytes Absolute Auto 0.4 X10*3/uL (0.1-1.2); Monocytes Percent Auto 8.6 % (2-11); Platelet Count 155 X10*3/uL (160-400); Red Cell Distribution Width 14.3 % (11.0-16.0); White Blood Count 5.1 X10*3/uL (4.8-10.8)
== END 2022-10-05 06:11 | disposition home or self-care (01) ==
LOC: HO.MMNH2L 06:10
PROVIDERS: Visit Provider Family Medicine
DX: G40.909 Epilepsy, unspecified, not intractable, without status epilepticus (principal)
CPT/HCPCS: 36415; 80048; 85025

== ENCOUNTER 2022-10-20 15:22 | Outpatient (REF) | payer OTHER, SELFPAY ==
[2022-10-20 16:33] LABS: IDNOW Serial# 6674DD1D; Strep A Nucleic Acid Negative (Negative)
== END 2022-10-20 15:23 | disposition home or self-care (01) ==
LOC: HO.MMNH2L 15:22
PROVIDERS: Visit Provider Family Medicine
DX: Z11.2 Encounter for screening for other bacterial diseases (principal)
CPT/HCPCS: 36415; 87070; 87651

== ENCOUNTER 2023-03-15 05:53 | Outpatient (REF) | payer OTHER, SELFPAY ==
[2023-03-15 05:53] LABS: MANUAL DIFF FLAG NO
[2023-03-15 06:20] LABS: Basophils Percent Auto 0.6 % (0-2); Eosinophils Absolute Auto 0.1 X10*3/uL (0.0-0.4); Eosinophils Percent Auto 1.7 % (0-4); Hemoglobin 12.6 g/dl (12.0-16.0); Imm Gran Abs Auto 0.01 X10*3/uL (0.00-0.03); Imm Gran Pct Auto 0.2 % (0.0-0.4); Lymphocytes Absolute Auto 1.6 X10*3/uL (1.2-4.9); Lymphocytes Percent Auto 29.6 % (20-40); Mean Corpuscular HGB Conc 33.2 g/dl (31.0-35.0); Mean Corpuscular Hemoglobin 32.6 pg (27.0-33.0); Mean Corpuscular Volume 98.2 fL (80.0-98.0); Mean Platelet Volume 10.6 fL (9.4-12.3); Monocytes Absolute Auto 0.4 X10*3/uL (0.1-1.2); Monocytes Percent Auto 7.9 % (2-11); Neutrophils Absolute Auto 3.2 x10*3/uL (2.0-8.3); Platelet Count 155 X10*3/uL (160-400); Red Blood Count 3.87 X10*6/uL (4.20-5.50); Red Cell Distribution Width 12.3 % (11.0-16.0); White Blood Count 5.3 X10*3/uL (4.8-10.8)
[2023-03-15 06:24] LABS: Anion Gap 15 (12-20); Blood Urea Nitrogen 10 mg/dL (9-16); Calcium 9.1 mg/dL (8.4-10.2); Carbon Dioxide 24 mmol/L (22-29); Chloride 105 mmol/L (96-108); Estimated Glomerular Filt Rate > 60; Glucose Random 90 mg/dL (60-115); Potassium 3.9 mmol/L (3.3-5.1); Sodium 140 mmol/L (135-145)
== END 2023-03-15 05:54 | disposition home or self-care (01) ==
LOC: HO.MMNH2L 05:53
PROVIDERS: Visit Provider Family Medicine
DX: I10 Essential (primary) hypertension (principal); E03.9 Hypothyroidism, unspecified
CPT/HCPCS: 36415; 80048; 85025

== ENCOUNTER 2023-09-13 06:22 | Outpatient (REF) | payer MEDICAID, SELFPAY ==
[2023-09-13 06:05] LABS: MANUAL DIFF FLAG NO
[2023-09-13 06:41] LABS: Basophils Percent Auto 0.4 % (0-2); Eosinophils Absolute Auto 0.1 X10*3/uL (0.0-0.4); Eosinophils Percent Auto 2.2 % (0-4); Hematocrit 38.3 % (37.0-47.0); Hemoglobin 12.9 g/dl (12.0-16.0); Imm Gran Abs Auto 0.01 X10*3/uL (0.00-0.03); Imm Gran Pct Auto 0.2 % (0.0-0.4); Lymphocytes Absolute Auto 1.4 X10*3/uL (1.2-4.9); Lymphocytes Percent Auto 30.2 % (20-40); Mean Corpuscular HGB Conc 33.7 g/dl (31.0-35.0); Mean Platelet Volume 10.9 fL (9.4-12.3); Monocytes Absolute Auto 0.4 X10*3/uL (0.1-1.2); Monocytes Percent Auto 9.5 % (2-11); Neutrophils Absolute Auto 2.6 x10*3/uL (2.0-8.3); Neutrophils Percent Auto 57.5 % (45-73); Platelet Count 135 X10*3/uL (160-400); Red Blood Count 4.03 X10*6/uL (4.20-5.50); Red Cell Distribution Width 12.4 % (11.0-16.0); White Blood Count 4.5 X10*3/uL (4.8-10.8)
[2023-09-13 06:56] LABS: Anion Gap 14 (12-20); Blood Urea Nitrogen 11 mg/dL (9-16); Calcium 9.3 mg/dL (8.4-10.2); Carbon Dioxide 27 mmol/L (22-29); Chloride 106 mmol/L (96-108); Estimated Glomerular Filt Rate > 60; Glucose Random 90 mg/dL (60-115); Potassium 4.1 mmol/L (3.3-5.1); Sodium 143 mmol/L (135-145)
== END 2023-09-13 06:23 | disposition home or self-care (01) ==
LOC: HO.MMNH2L 06:22
PROVIDERS: Visit Provider Family Medicine
DX: I10 Essential (primary) hypertension (principal); E03.9 Hypothyroidism, unspecified
CPT/HCPCS: 36415; 80048; 85025

== ENCOUNTER 2023-09-20 06:08 | Outpatient (REF) | payer MEDICAID, SELFPAY ==
[2023-09-20 06:10] LABS: MANUAL DIFF FLAG NO
[2023-09-20 07:26] LABS: Alanine Aminotransferase 23 U/L (0-31); Albumin Level 3.5 g/dL (3.5-5.0); Alkaline Phosphatase 82 U/L (39-117); Anion Gap 11 (12-20); Aspartate Amino Transferase 15 U/L (5-31); Bilirubin Total 0.4 mg/dL (0.0-1.0); Blood Urea Nitrogen 10 mg/dL (9-16); Calcium 9.1 mg/dL (8.4-10.2); Carbon Dioxide 26 mmol/L (22-29); Chloride 109 mmol/L (96-108); Estimated Glomerular Filt Rate > 60; Glucose Random 92 mg/dL (60-115); Potassium 3.8 mmol/L (3.3-5.1); Sodium 142 mmol/L (135-145); Total Protein 6.3 g/dL (6.5-8.0)
[2023-09-20 07:28] LABS: Basophils Percent Auto 0.5 % (0-2); Eosinophils Absolute Auto 0.1 X10*3/uL (0.0-0.4); Hemoglobin 12.5 g/dl (12.0-16.0); Imm Gran Abs Auto 0.03 X10*3/uL (0.00-0.03); Imm Gran Pct Auto 0.7 % (0.0-0.4); Lymphocytes Absolute Auto 1.3 X10*3/uL (1.2-4.9); Lymphocytes Percent Auto 31.6 % (20-40); Mean Corpuscular HGB Conc 33.8 g/dl (31.0-35.0); Mean Corpuscular Volume 94.6 fL (80.0-98.0); Mean Platelet Volume 11.3 fL (9.4-12.3); Monocytes Absolute Auto 0.4 X10*3/uL (0.1-1.2); Monocytes Percent Auto 9.1 % (2-11); Neutrophils Absolute Auto 2.3 x10*3/uL (2.0-8.3); Neutrophils Percent Auto 56.1 % (45-73); Platelet Count 144 X10*3/uL (160-400); Red Blood Count 3.91 X10*6/uL (4.20-5.50); Red Cell Distribution Width 12.4 % (11.0-16.0); White Blood Count 4.1 X10*3/uL (4.8-10.8)
== END 2023-09-20 06:09 | disposition home or self-care (01) ==
LOC: HO.MMNH2L 06:08
PROVIDERS: Visit Provider Family Medicine
DX: I10 Essential (primary) hypertension (principal)
CPT/HCPCS: 36415; 80053; 85025

== ENCOUNTER 2023-11-12 05:41 | Outpatient (REF) | payer MEDICARE, MEDICAID, SELFPAY ==
[2023-11-12 05:44] LABS: MANUAL DIFF FLAG NO
[2023-11-12 05:54] LABS: Basophils Percent Auto 0.4 % (0-2); Eosinophils Absolute Auto 0.1 X10*3/uL (0.0-0.4); Eosinophils Percent Auto 1.6 % (0-4); Hematocrit 37.8 % (37.0-47.0); Hemoglobin 12.8 g/dl (12.0-16.0); Imm Gran Abs Auto 0.02 X10*3/uL (0.00-0.03); Imm Gran Pct Auto 0.4 % (0.0-0.4); Lymphocytes Absolute Auto 1.5 X10*3/uL (1.2-4.9); Lymphocytes Percent Auto 30.2 % (20-40); Mean Corpuscular HGB Conc 33.9 g/dl (31.0-35.0); Mean Corpuscular Hemoglobin 32.6 pg (27.0-33.0); Mean Corpuscular Volume 96.2 fL (80.0-98.0); Mean Platelet Volume 10.6 fL (9.4-12.3); Monocytes Absolute Auto 0.3 X10*3/uL (0.1-1.2); Neutrophils Absolute Auto 3.1 x10*3/uL (2.0-8.3); Neutrophils Percent Auto 61.4 % (45-73); Platelet Count 131 X10*3/uL (160-400); Red Blood Count 3.93 X10*6/uL (4.20-5.50)
[2023-11-12 06:05] LABS: Alanine Aminotransferase 21 U/L (0-31); Albumin Level 3.5 g/dL (3.5-5.0); Alkaline Phosphatase 92 U/L (39-117); Anion Gap 10 (12-20); Aspartate Amino Transferase 12 U/L (5-31); Bilirubin Direct 0.1 mg/dL (0.0-0.5); Bilirubin Total 0.3 mg/dL (0.0-1.0); Blood Urea Nitrogen 9 mg/dL (9-16); Calcium 8.8 mg/dL (8.4-10.2); Carbon Dioxide 27 mmol/L (22-29); Chloride 109 mmol/L (96-108); Estimated Glomerular Filt Rate > 60; Glucose Random 102 mg/dL (60-115); Potassium 3.9 mmol/L (3.3-5.1); Sodium 142 mmol/L (135-145); Total Protein 6.4 g/dL (6.5-8.0)
== END 2023-11-12 05:42 | disposition home or self-care (01) ==
LOC: HO.MMNH2L 05:41
PROVIDERS: Visit Provider Family Medicine
DX: J44.9 Chronic obstructive pulmonary disease, unspecified (principal); E03.9 Hypothyroidism, unspecified; I10 Essential (primary) hypertension
CPT/HCPCS: 36415; 80048; 80076; 85025

== ENCOUNTER 2024-01-12 09:31 | Outpatient (REF) | payer MEDICARE, MEDICAID, SELFPAY ==
[2024-01-12 09:47] LABS: Appearance Urine Clear; Color Urine Yellow; Glucose Urine UA Negative (Negative); Leukocyte Esterase Urine Negative (Negative); Nitrite Urine Negative (Negative); PH 6.5 (5.0-9.0); Specific Gravity - Urine 1.015 (1.005-1.025); Urine Blood Negative (Negative); Urine Ketones Negative (Negative); Urine Protein Negative (Neg-Trace)
== END 2024-01-12 09:32 | disposition home or self-care (01) ==
LOC: HO.MMNH2L 09:31
PROVIDERS: Visit Provider Family Medicine
DX: R41.82 Altered mental status, unspecified (principal)
CPT/HCPCS: 81003; 87086

== ENCOUNTER 2024-01-13 05:46 | Outpatient (REF) | payer MEDICARE, MEDICAID, SELFPAY ==
[2024-01-13 05:48] LABS: MANUAL DIFF FLAG NO
[2024-01-13 06:07] LABS: Ammonia 23 umol/L (13-55)
[2024-01-13 06:25] LABS: Basophils Percent Auto 0.6 % (0-2); Eosinophils Absolute Auto 0.1 X10*3/uL (0.0-0.4); Eosinophils Percent Auto 2.4 % (0-4); Hematocrit 39.4 % (37.0-47.0); Hemoglobin 13.3 g/dl (12.0-16.0); Imm Gran Abs Auto 0.03 X10*3/uL (0.00-0.03); Imm Gran Pct Auto 0.6 % (0.0-0.4); Lymphocytes Absolute Auto 1.6 X10*3/uL (1.2-4.9); Lymphocytes Percent Auto 31.6 % (20-40); Mean Corpuscular HGB Conc 33.8 g/dl (31.0-35.0); Mean Corpuscular Hemoglobin 32.4 pg (27.0-33.0); Mean Corpuscular Volume 95.9 fL (80.0-98.0); Mean Platelet Volume 10.7 fL (9.4-12.3); Monocytes Absolute Auto 0.4 X10*3/uL (0.1-1.2); Monocytes Percent Auto 8.8 % (2-11); Neutrophils Absolute Auto 2.8 x10*3/uL (2.0-8.3); Platelet Count 144 X10*3/uL (160-400); Red Blood Count 4.11 X10*6/uL (4.20-5.50); Red Cell Distribution Width 12.4 % (11.0-16.0); White Blood Count 4.9 X10*3/uL (4.8-10.8)
[2024-01-13 06:50] LABS: Anion Gap 10 (12-20); Blood Urea Nitrogen 11 mg/dL (9-16); Calcium 9.7 mg/dL (8.4-10.2); Carbon Dioxide 29 mmol/L (22-29); Chloride 108 mmol/L (96-108); Estimated Glomerular Filt Rate > 60; Glucose Random 97 mg/dL (60-115); Potassium 4.4 mmol/L (3.3-5.1); Sodium 143 mmol/L (135-145)
[2024-01-13 07:05] LABS: Thyroid Stimulating Hormone 9.14 uIU/mL (0.32-4.0)
== END 2024-01-13 05:47 | disposition home or self-care (01) ==
LOC: HO.MMNH2L 05:46
PROVIDERS: Visit Provider Family Medicine
DX: E03.9 Hypothyroidism, unspecified (principal); R56.9 Unspecified convulsions
CPT/HCPCS: 36415; 80048; 82140; 84443; 85025

== ENCOUNTER 2024-02-15 05:56 | Outpatient (REF) | payer MEDICARE, SELFPAY ==
[2024-02-15 07:10] LABS: Free T4 (Free Thyroxine) 0.77 ng/dL (0.71-1.85)
== END 2024-02-15 05:57 | disposition home or self-care (01) ==
LOC: HO.MMNH2L 05:56
PROVIDERS: Visit Provider Family Medicine
DX: E03.9 Hypothyroidism, unspecified (principal)
CPT/HCPCS: 36415; 84439; 84443

== ENCOUNTER 2024-03-09 05:39 | Outpatient (REF) | payer MEDICARE, SELFPAY ==
[2024-03-09 05:41] LABS: MANUAL DIFF FLAG NO
[2024-03-09 06:01] LABS: Basophils Percent Auto 0.3 % (0-2); Eosinophils Absolute Auto 0.1 X10*3/uL (0.0-0.4); Eosinophils Percent Auto 1.4 % (0-4); Hematocrit 40.3 % (37.0-47.0); Hemoglobin 13.3 g/dl (12.0-16.0); Imm Gran Abs Auto 0.02 X10*3/uL (0.00-0.03); Imm Gran Pct Auto 0.3 % (0.0-0.4); Lymphocytes Absolute Auto 1.6 X10*3/uL (1.2-4.9); Mean Corpuscular Hemoglobin 32.1 pg (27.0-33.0); Mean Corpuscular Volume 97.3 fL (80.0-98.0); Mean Platelet Volume 11.3 fL (9.4-12.3); Monocytes Absolute Auto 0.5 X10*3/uL (0.1-1.2); Monocytes Percent Auto 7.8 % (2-11); Neutrophils Absolute Auto 4.1 x10*3/uL (2.0-8.3); Neutrophils Percent Auto 65.2 % (45-73); Platelet Count 149 X10*3/uL (160-400); Red Blood Count 4.14 X10*6/uL (4.20-5.50); Red Cell Distribution Width 12.9 % (11.0-16.0); White Blood Count 6.3 X10*3/uL (4.8-10.8)
[2024-03-09 06:41] LABS: Anion Gap 11 (12-20)
[2024-03-09 06:46] LABS: Blood Urea Nitrogen 13 mg/dL (9-16); Calcium 9.3 mg/dL (8.4-10.2); Carbon Dioxide 30 mmol/L (22-29); Chloride 107 mmol/L (96-108); Cholesterol 106 mg/dL (<200); Estimated Glomerular Filt Rate > 60; Glucose Random 102 mg/dL (60-115); HDL Cholesterol 39 mg/dL (>40); LDL Cholesterol Calculated 57 mg/dL (<100); Potassium 4.6 mmol/L (3.3-5.1); Sodium 143 mmol/L (135-145); Triglycerides 52 mg/dL (<150)
[2024-03-09 07:06] LABS: Thyroid Stimulating Hormone 15.92 uIU/mL (0.32-4.0)
[2024-03-09 07:12] LABS: Alanine Aminotransferase 18 U/L (0-31); Albumin Level 3.8 g/dL (3.5-5.0); Alkaline Phosphatase 100 U/L (39-117); Aspartate Amino Transferase 11 U/L (5-31); Bilirubin Total 0.3 mg/dL (0.0-1.0); Total Protein 6.5 g/dL (6.5-8.0)
== END 2024-03-09 05:40 | disposition home or self-care (01) ==
LOC: HO.MMNH2L 05:39
PROVIDERS: Visit Provider Hospitalist
DX: E03.9 Hypothyroidism, unspecified (principal)
CPT/HCPCS: 36415; 80053; 80061; 80177; 84443; 85025

== ENCOUNTER 2024-04-11 06:14 | Outpatient (REF) | payer MEDICARE, MEDICAID, SELFPAY ==
[2024-04-11 07:19] LABS: Thyroid Stimulating Hormone 6.01 uIU/mL (0.32-4.0)
== END 2024-04-11 06:15 | disposition home or self-care (01) ==
LOC: HO.MMNH2L 06:14
PROVIDERS: Visit Provider Family Medicine
DX: E03.9 Hypothyroidism, unspecified (principal)
CPT/HCPCS: 36415; 84443

== ENCOUNTER 2024-05-22 06:47 | Outpatient (REF) | payer MEDICARE, MEDICAID, SELFPAY ==
[2024-05-22 06:04] LABS: MANUAL DIFF FLAG NO
[2024-05-22 07:26] LABS: Anion Gap 12 (12-20); Blood Urea Nitrogen 8 mg/dL (9-16); Calcium 9.1 mg/dL (8.4-10.2); Carbon Dioxide 27 mmol/L (22-29); Chloride 107 mmol/L (96-108); Estimated Glomerular Filt Rate > 60; Glucose Random 99 mg/dL (60-115); Potassium 4.1 mmol/L (3.3-5.1); Sodium 142 mmol/L (135-145)
[2024-05-22 07:34] LABS: Basophils Percent Auto 0.4 % (0-2); Eosinophils Absolute Auto 0.2 X10*3/uL (0.0-0.4); Eosinophils Percent Auto 2.7 % (0-4); Hematocrit 37.4 % (37.0-47.0); Hemoglobin 12.3 g/dl (12.0-16.0); Imm Gran Abs Auto 0.02 X10*3/uL (0.00-0.03); Imm Gran Pct Auto 0.4 % (0.0-0.4); Lymphocytes Absolute Auto 1.5 X10*3/uL (1.2-4.9); Lymphocytes Percent Auto 27.2 % (20-40); Mean Corpuscular HGB Conc 32.9 g/dl (31.0-35.0); Mean Corpuscular Volume 97.4 fL (80.0-98.0); Monocytes Absolute Auto 0.5 X10*3/uL (0.1-1.2); Monocytes Percent Auto 9.4 % (2-11); Neutrophils Absolute Auto 3.3 x10*3/uL (2.0-8.3); Neutrophils Percent Auto 59.9 % (45-73); Platelet Count 149 X10*3/uL (160-400); Red Blood Count 3.84 X10*6/uL (4.20-5.50); Red Cell Distribution Width 12.7 % (11.0-16.0); White Blood Count 5.5 X10*3/uL (4.8-10.8)
== END 2024-05-22 06:48 | disposition home or self-care (01) ==
LOC: HO.MMNH2L 06:47
PROVIDERS: Visit Provider Family Medicine
DX: E03.9 Hypothyroidism, unspecified (principal); I10 Essential (primary) hypertension
CPT/HCPCS: 36415; 80048; 85025

== ENCOUNTER 2024-05-25 05:46 | Outpatient (REF) | payer MEDICARE, MEDICAID, SELFPAY ==
[2024-05-25 06:42] LABS: TSH reflex Free T4 3.31 uIU/mL (0.32-4.0)
== END 2024-05-25 05:47 | disposition home or self-care (01) ==
LOC: HO.MMNH2L 05:46
PROVIDERS: Visit Provider Hospitalist
DX: I10 Essential (primary) hypertension (principal)
CPT/HCPCS: 36415; 84443

== ENCOUNTER 2024-06-21 16:35 | Outpatient (REF) | payer MEDICARE, SELFPAY ==
[2024-06-21 17:00] LABS: Appearance Urine Clear; Color Urine Yellow; Glucose Urine UA Negative (Negative); Leukocyte Esterase Urine Negative (Negative); Nitrite Urine Negative (Negative); PH 5.5 (5.0-9.0); Specific Gravity - Urine <= 1.005 (1.005-1.025); Urine Blood Negative (Negative); Urine Ketones Negative (Negative); Urine Protein Negative (Neg-Trace)
== END 2024-06-21 16:36 | disposition home or self-care (01) ==
LOC: HO.MMNH2L 16:35
PROVIDERS: Visit Provider Student in an Organized Health Care Education/Training Program
DX: I63.542 Cerebral infarction due to unspecified occlusion or stenosis of left cerebellar artery (principal)
CPT/HCPCS: 81003; 87086

== ENCOUNTER 2024-06-22 05:34 | Outpatient (REF) | payer MEDICARE, SELFPAY ==
[2024-06-22 05:37] LABS: MANUAL DIFF FLAG NO
[2024-06-22 06:01] LABS: Basophils Percent Auto 0.5 % (0-2); Eosinophils Absolute Auto 0.1 X10*3/uL (0.0-0.4); Eosinophils Percent Auto 3.3 % (0-4); Hematocrit 38.2 % (37.0-47.0); Hemoglobin 12.7 g/dl (12.0-16.0); Imm Gran Abs Auto 0.02 X10*3/uL (0.00-0.03); Imm Gran Pct Auto 0.5 % (0.0-0.4); Lymphocytes Absolute Auto 1.1 X10*3/uL (1.2-4.9); Lymphocytes Percent Auto 28.9 % (20-40); Mean Corpuscular HGB Conc 33.2 g/dl (31.0-35.0); Mean Corpuscular Hemoglobin 31.7 pg (27.0-33.0); Mean Corpuscular Volume 95.3 fL (80.0-98.0); Mean Platelet Volume 10.9 fL (9.4-12.3); Monocytes Absolute Auto 0.3 X10*3/uL (0.1-1.2); Monocytes Percent Auto 8.6 % (2-11); Neutrophils Absolute Auto 2.3 x10*3/uL (2.0-8.3); Neutrophils Percent Auto 58.2 % (45-73); Platelet Count 152 X10*3/uL (160-400); Red Blood Count 4.01 X10*6/uL (4.20-5.50); Red Cell Distribution Width 12.4 % (11.0-16.0)
[2024-06-22 06:26] LABS: Anion Gap 14 (12-20); Blood Urea Nitrogen 8 mg/dL (9-16); Calcium 9.3 mg/dL (8.4-10.2); Carbon Dioxide 26 mmol/L (22-29); Chloride 107 mmol/L (96-108); Estimated Glomerular Filt Rate > 60; Glucose Random 104 mg/dL (60-115); Potassium 4.2 mmol/L (3.3-5.1); Sodium 143 mmol/L (135-145)
[2024-06-22 06:46] LABS: Thyroid Stimulating Hormone 7.37 uIU/mL (0.32-4.0)
[2024-06-25 19:29] LABS: Levetiracetam Keppra 12.2 mcg/mL (6.0-46.0)
[2024-06-27 17:18] LABS: Lamotrigine Lamictal 1.3 mcg/mL (2.5-15.0)
== END 2024-06-22 05:35 | disposition home or self-care (01) ==
LOC: HO.MMNH2L 05:34
PROVIDERS: Visit Provider Student in an Organized Health Care Education/Training Program
DX: I63.542 Cerebral infarction due to unspecified occlusion or stenosis of left cerebellar artery (principal)
CPT/HCPCS: 36415; 80048; 80175; 80177; 84443; 85025

== ENCOUNTER 2024-08-25 05:46 | Outpatient (REF) | payer MEDICARE, SELFPAY ==
[2024-08-25 05:48] LABS: MANUAL DIFF FLAG NO
[2024-08-25 06:10] LABS: Basophils Percent Auto 0.7 % (0-2); Eosinophils Absolute Auto 0.1 X10*3/uL (0.0-0.4); Eosinophils Percent Auto 3.2 % (0-4); Hematocrit 41.4 % (37.0-47.0); Hemoglobin 13.7 g/dl (12.0-16.0); Imm Gran Abs Auto 0.01 X10*3/uL (0.00-0.03); Imm Gran Pct Auto 0.2 % (0.0-0.4); Lymphocytes Absolute Auto 1.4 X10*3/uL (1.2-4.9); Lymphocytes Percent Auto 32.9 % (20-40); Mean Corpuscular HGB Conc 33.1 g/dl (31.0-35.0); Mean Corpuscular Volume 93.7 fL (80.0-98.0); Mean Platelet Volume 11.1 fL (9.4-12.3); Monocytes Absolute Auto 0.3 X10*3/uL (0.1-1.2); Monocytes Percent Auto 7.7 % (2-11); Neutrophils Absolute Auto 2.4 x10*3/uL (2.0-8.3); Neutrophils Percent Auto 55.3 % (45-73); Platelet Count 143 X10*3/uL (160-400); Red Blood Count 4.42 X10*6/uL (4.20-5.50); Red Cell Distribution Width 12.3 % (11.0-16.0); White Blood Count 4.3 X10*3/uL (4.8-10.8)
[2024-08-25 06:34] LABS: Alanine Aminotransferase 15 U/L (0-31); Albumin Level 3.7 g/dL (3.5-5.0); Alkaline Phosphatase 101 U/L (39-117); Anion Gap 9 (12-20); Aspartate Amino Transferase 18 U/L (5-31); Bilirubin Total 0.4 mg/dL (0.0-1.0); Blood Urea Nitrogen 7 mg/dL (9-16); Carbon Dioxide 28 mmol/L (22-29); Chloride 110 mmol/L (96-108); Estimated Glomerular Filt Rate > 60; Glucose Random 96 mg/dL (60-115); Potassium 4.2 mmol/L (3.3-5.1); Sodium 143 mmol/L (135-145); Total Protein 6.7 g/dL (6.5-8.0)
[2024-08-25 06:49] LABS: Thyroid Stimulating Hormone 10.15 uIU/mL (0.32-4.0)
== END 2024-08-25 05:47 | disposition home or self-care (01) ==
LOC: HO.MMNH2L 05:46
PROVIDERS: Visit Provider Student in an Organized Health Care Education/Training Program
DX: E03.9 Hypothyroidism, unspecified (principal)
CPT/HCPCS: 36415; 80053; 84443; 85025

== ENCOUNTER 2025-07-13 06:29 | Outpatient (REF) | payer MEDICARE, SELFPAY ==
[2025-07-13 06:32] LABS: MANUAL DIFF FLAG NO
--- OUTSIDE RECORDS SUMMARY | 2025-07-13 06:33 | XMS_ITS | Data Portability ---
Author Organization [facility], Main Office Address [address] [place] [address] Care Team Providers Care Auto Service Representative Name Role Phone IRVIN COOK 2ND FLOOR OTHER Assessment Encounter Date Assessment Date Assessment LastModified by Organization Details LastModified Time 01/20/2024 01/20/2024 Labs 01/12: Na 143-K 4.4-Bun 11- Cr 0.7-wbc 4.9-hgb 13.3- Hct 39.4-Plt 144- [email or web address] Not available 01/27/2024 19:30:20 02/11/2024 02/11/2024 Spent 30 reviewing records, seeing pt, consulting with staff and documenting [email or web address] Not available 02/13/2024 01:43:55 Plan of Treatment Reminders Order Date Submit Date Provider Last Modified By Organization Details Last Modified Time Details Appointments None record ed. Lab None record ed. Referral None record ed. Procedures None record ed. Surgeries None record ed. Imaging None record ed. Medication Orders None record ed. Patient TargetsNo targets recorded. Patient InstructionsNo instructions recorded. Reason for Referral None Reported. Problems Name Problem SNOMED Code Status Onset Date Resolution Date Notes Provider Name and Address Organization Details Recorded Time Cerebrova scular accident 144764524 Active 2021 Not Available [facility] 3 05:26:44 Hypothyro idism 39119604 Active 2021 Not Available [facility] 3 05:26:44 Anemia 450259377 Active 2021 Not Available [facility] 3 05:26:44 Chronic obstructi ve pulmonary disease 67234028 Active 2021 Not Available [facility] 3 05:26:44 Essential hypertens ion 44747694 Active 2021 Not Available [facility] 3 05:26:44 Smoker 90989629 Active 2021 Not Available [facility] 3 05:26:44 Gastroeso phageal reflux disease without esophagit is 588792971 Active 2021 Not Available [facility] 3 05:26:44 Mixed anxiety and depressiv e disorder 417478089 Active 2021 Not Available [facility] 3 05:26:44 Asthenia 73746946 Active 2021 Not Available [facility] 3 05:26:44 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 Not Available [facility] 3 05:26:44 Falls 465448400 Active 2021 Not Available [facility] 3 05:26:44 Closed fracture of first lumbar vertebra 96876205295 282248 Active 2021 L1 Not Available [facility] 3 05:26:44 Acute retention of urine 953659524 Active 2021 Not Available [facility] 3 05:26:44 Constipat ion 31062849 Active 2021 Not Available [facility] 3 05:26:44 Delusion 5525249 Active 2021 Not Available [facility] 3 05:26:44 Preparati on of medical certifica te Active 2021 Not Available [facility] 3 05:26:44 Dysphagia 71241333 Active 2021 Not Available [facility] 3 05:26:44 Wound of skin 629905987 Active 2021 surgical abd incisions Not Available [facility] 3 05:26:44 Esophagea l hiatus hernia repair Active 2021 Not Available [facility] 3 05:26:44 COVID-19 867421635 Active 2021 Not Available [facility] 3 05:26:44 Seizure 90972221 Active 2022 CATRACHITA MCCAULEY, DAVID [address] [facility], [address], [place], [address] , [facility] 3 15:28:13 History of cerebrova scular accident 410181919 Active 2022 Caroline Daley MD [address] [facility], [address], [place], [address] , [facility] 3 01:27:15 Pain of left shoulder region Active 2022 CATRACHITA MCCAULEY NP [address] [facility], [facility] [address], [place], [address] , [facility] 12:13:30 Pain of left shoulder joint 54963960856 492180 Active 2022 Caroline Daley MD [address] [place] [address], [facility] [address], [place], [address] , [facility] 01:31:49 Notes:Some problems listed i n Documents: #[id number], #[id number], #[id number] could not be added to this patient's chart. Please review these documents and add these problems to the patient's chart manually as needed. Problem Notes None recorded. Medical Equipment None Reported. Allergies Allergen ID Allergen Name Allergen Category Reaction Reaction Severity Criticality Documentation Date Start Date Code Code System Note Provider Name and Address Organization Details Recorded Time 94362 Substance with sulfonami de structure and antibacte rial mechanism of action (substanc e) medicatio n Not available Not available Not available 01/30/2022 41296 8003 SNOMED CATRACHITA MCCAULEY NP [address] [facility], [facility] [address], [place], [address], [facility] 2 14:04:04 Vitals Date Recorded Body height Heart rate Respiratory rate Body temperature Oxygen saturation Systolic And Diastolic Provider Name and Address Organization Details Last Updated DateTime 4 162.56 cm 66 /min 18 /min 97.6 [degF] 96 % 122/85 mm[Hg] JADA ALEGRIA [address] [facility], [address], [place], [address], [facility] 13:59:24 Date Recorded Body height Heart rate Body temperature Systolic And Diastolic Provider Name and Address Organization Details Last Updated DateTime 01/11/2024 162.56 cm 70 /min 97.3 [degF] 122/84 mm[Hg] JADA ALEGRIA [address] [facility], [address], [place], [address] , [facility] 01/12/2024 16:39:39 Date Recorded Body height Heart rate Respiratory rate Systolic And Diastolic Provider Name and Address Organization Details Last Updated DateTime 01/20/2024 162.56 cm 70 /min 18 /min 122/84 mm[Hg] JADA ALEGRIA [address] [facility], [address], [place], [address] , [facility] 01/27/2024 19:17:49 Date Recorded Body height Body mass index (BMI) Body weight Heart rate Respiratory rate Body temperature Oxygen saturation Systolic And Diastolic Provider Name and Address Organization Details Last Updated DateTime 162.56 cm 42.2 kg/m2 481538. 72 g 88 /min 18 /min 98.2 [degF] 98 % 137/80 mm[Hg] Caroline Daley MD [address] [facility], [address], [place], [address], [facility] 4 00:22:49 Date Recorded Body height Heart rate Respiratory rate Body temperature Systolic And Diastolic Provider Name and Address Organization Details Last Updated DateTime 4 162.56 cm 78 /min 18 /min 98.2 [degF] 132/78 mm[Hg] JADA ALEGRIA [address] [facility], [address], [place], [address], [facility] 4 12:53:44 Social History Question Answer Notes LastModified by Organizat ion Details LastModified Time Tobacco Smoking Status Former Smoker quit 06/2022, was 2 packs/wk. Caroline Daley MD [address] [facility], [address], [place], [address], [facility] 02/19/2023 18:28:14 Do You Have An Advance Directive? Yes Information not available 11/13/2022 What Is Your Code Status? DNR/DNI Information not available 11/13/2022 Where Do You Live? [facility] Information not available 02/19/2023 Legal Guardian? Yes Winston Mckeon Information not available 02/09/2022 Do You Have A Medical Power Of Vessel [place]? Yes Guardian-saranya Mcpherson [phone] Information not available 02/09/2022 What Was The Date Of Your Most Recent Tobacco Screening? 02/19/2023 Information not available 02/19/2023 Do You Have An Out Of Hospital DNR? Yes Information not available 02/19/2023 What Is Your Relationship Status? Domestic Partner Information not available 02/11/2024 How Much Tobacco Do You Smoke? No Information not available 02/19/2023 Has Tobacco Cessation Counseling Been Provided? No N/a As Pt. No Longer Smokes Information not available 02/19/2023 On What Date Was Tobacco Cessation Counseling Provided? 01/30/2022 Information not available 01/30/2022 Sex: Unknown Functional Status Question Answer Note LastModified by [employer] Details LastModified Time Do you use any illicit or recreational drugs? No Information not available 01/30/2022 Do you or have you ever used any other forms of tobacco or nicotine? No Information not available 01/30/2022 What is your level of alcohol consumption? None Information not available 01/30/2022 Mental Status None recorded. Family History Nothing Reported Notes:n/c Medical History No medical history recorded. Gynecological HistoryNo gynecological history recorded. Obstetrics History GPAL:G 0 P 0 0 0 0 Immunizations Vaccine Type Date Status Note Provider Nam e and Address Organization Details Recorded Time Influenza, adjuvanted, quadrivalent, PF 04/29/2023 completed Ana Maria garcia [place] - [facility] 08/30/2023 12:34:46 Past Encounters Encounter ID Performer Location Encounter Start Date Encounter Closed Date Diagnosis/Indication Diagnosis SNOMED-CT Code Diagnosis ICD10 Code Diagnosis IMO Codes Diagnosis Note [id number] DAVID WALKER [address] [place] [address] 01/30/2022 14:02:45 02/11/2022 14:49:06 Cerebrovascular accident 446477726 I63.9 asa 81 mg dailyatorv astatin 80 mg dailymonit or neuros Chronic ob structive pulmonary disease 45148505 J44.9 trelegy dailycombi vent inhaler qid prn with spacermoni tor resp status Essential hypertension 29034614 I10 amlodipine 5 mg dailymetop rolol 25 mg bidmonitor bp Gastroesop hageal reflux disease without esophagitis 896160979 K21.9 omeprazole 20 mg dailycaraf ate 1gm ac/hs Hypothyroidism 74194681 E03.9 levothyrox ine 50 mcg daily Mixed anxi ety and depressive disorder 870521829 F41.8 zoloft 150 mg dailypsych prn Smoker 83462828 F17.200 nicotine patch 14 mg dailyencou rage cessation Anemia 641654650 D64.9 monitor labs Asthenia 29498433 R53.1 PT OT eval and treatfall precaution sfrequent safety checks Cortical blindness 78131 006 H47.619 monitor [id number] DAVID WALKER JOYCE [address] [place] [address] 02/02/2022 12:17:49 02/11/2022 15:05:05 Cerebrovascular accident 900014859 I63.9 asa 81 mg dailyatorv astatin 80 mg dailymonit or neuros Gastroesop hageal reflux disease without esophagitis 056716745 K21.9 omeprazole 20 mg dailycaraf ate 1gm ac/hs [id number] DAVID WALKER JOYCE [address] [place] [address] 02/04/2022 12:42:43 02/11/2022 15:23:16 Cerebrovascular accident 860255594 I63.9 asa 81 mg dailyatorv astatin 80 mg dailymonit or neuros Gastroesop hageal reflux disease without esophagitis 420050905 K21.9 omeprazole 20 mg dailycaraf ate 1gm ac/hsflush GT with water to avoid plugging [id number] Caroline Daley MD [address] [address] 02/05/2022 12:25:02 02/11/2022 15:39:54 Cerebrovascular accident 502828930 I63.89 Continue ASA 81 mg qd and atorvastat in 80 mg qd.Stable. Monitor for neuro changes. Gastroesop hageal reflux disease without esophagitis 660994698 K21.9 No current sxs.Contin ue omeprazole 20 mg qd and carafate 1 gm QID.Monito r sxs. Chronic ob structive pulmonary disease 57236472 J44.9 With some wheezing today. Had duonebs scheduled inpt. Will change combivent to 2 puffs QID scheduled and continue trelegy qd.Monitor resp status Essential hypertension 51004398 I10 Good control on amlodipine 5 mg qd and metoprolol 25 mg BID.Monito r BP and labs Hypothyroidism 26000326 E03.8 Continue levothyrox ine 50 mcg qd.Monitor TSH Mixed anxi ety and depressive disorder 908870930 F41.8 Continue sertraline 150 mg qdMood good today.Samia tor mood.Consu lt psych prn Smoker 55675538 F17.200 Continue nicotine patch 14 mg qdCOntinue to encourage abstinence . Anemia 218746288 D64.89 No labs done here yet.Ordere d for 7/5Monitor labs Asthenia 68645850 R53.1 Very deconditio keysha.Needs PT/OT for strengthen ing, balance, gait training, safety and function.C ontinue fall precaution s.Monitor for safety. Cortical blindness 38005 006 H47.619 Will need support with adjustment to new blindness. May be able to access resources through [employer].OT/P T as able. Acute rete ntion of urine 564495392 R33.8 Continue johnson for now.Consid er voiding trial next week. Dysphagia 62492992 I69.8 91 With g-tube in place, but also beginning to take po again with [employer] help.Victorina nue jevity 237 ml 5x/day bolus feeds.Decr ease g-tube feeds as pt's po intake improves.W ater flushes as ordered.Carlos Alberto r vb net developer and [employer]. [id number] DAVID WALKER [address] [place] [address] rd [place] [address] 02/06/2022 10:48:47 02/11/2022 16:17:22 Falls 839735683 R29.6 PT OT eval and treatfall precaution sfrequent safety checksfloo r mats-thick er mats orderedbed against the wall for safety Closed fra cture of first lumbar vertebra 1021667859 3864466 S32.019A PT OT eval and treatoxyco done 5 mg q6hr prn [id number] CATRACHITA MCCAULEY NP [address] [address] 02/10/2022 14:04:27 02/17/2022 14:42:12 Cerebrovascular accident 592719231 I63.89 asa 81 mg dailyatorv astatin 80 mg dailymonit or neuros Chronic ob structive pulmonary disease 76073262 J44.9 trelegy dailycombi vent inhaler qid prn with spacermoni tor resp status Closed fra cture of first lumbar vertebra 2379270337 1065957 S32.019A PT OT eval and treatoxyco done 5 mg q6hr prn [id number] CATRACHITA MCCAULEY NP [address] [address] 02/12/2022 11:26:56 02/17/2022 15:38:14 Mixed anxiety and depressive disorder 444622441 F41.8 zoloft 150 mg dailypsych prn Closed fra cture of first lumbar vertebra 8358625963 1235772 S32.019A PT OT eval and treatoxyco done 5 mg q6hr prn Asthenia 90465520 R53.1 PT OT eval and treatfall precaution sfrequent safety checks [id number] CATRACHITA MCCAULEY NP [address] [address] 02/16/2022 13:17:40 02/24/2022 12:46:23 Closed fracture of first lumbar vertebra 0165523444 3630520 S32.019A PT OT eval and treatoxyco done 5 mg q6hr prn Acute rete ntion of urine 508671921 R33.8 chronic johnson, replaced 02/16 Asthenia 68418672 R53.1 PT OT eval and treatfall precaution sfrequent safety checks [id number] CATRACHITA MCCAULEY NP [address] [address] 02/20/2022 15:08:11 02/27/2022 16:59:01 Acute retention of urine 030446684 R33.8 chronic johnson, replaced 02/16 Asthenia 67600640 R53.1 PT OT eval and treatfall precaution sfrequent safety checks Closed fra cture of first lumbar vertebra 1211972674 1451159 S32.019A PT OT eval and treatoxyco done 5 mg q6hr prnencoura ge oob at least tid [id number] CATRACHITA MCCAULEY NP [address] [address] 02/23/2022 13:26:23 03/04/2022 16:05:03 Acute retention of urine 213254891 R33.8 chronic johnson, replaced 02/16monito r output Closed fra cture of first lumbar vertebra 2699576092 8513280 S32.019A PT OT eval and treatoxyco done 5 mg q6hr prnencoura ge oob at least tid Gastroesop hageal reflux disease without esophagitis 593348145 K21.9 omeprazole 20 mg dailycaraf ate 1gm ac/hsflush GT with water to avoid plugging [id number] CATRACHITA MCCAULEY NP [address] [address] 02/25/2022 10:42:41 03/04/2022 16:27:18 Cerebrovascular accident 694379435 I63.9 asa 81 mg dailyatorv astatin 80 mg dailymonit or neuros Chronic ob structive pulmonary disease 46474681 J44.9 trelegy dailycombi vent inhaler qid prn with spacermoni tor resp status Essential hypertension 27117855 I10 amlodipine 5 mg dailymetop rolol 25 mg bidmonitor bp Gastroesop hageal reflux disease without esophagitis 241821945 K21.9 omeprazole 20 mg dailycaraf ate 1gm ac/hs Hypothyroidism 11998901 E03.9 levothyrox ine 50 mcg daily Mixed anxi ety and depressive disorder 643875979 F41.8 zoloft 150 mg dailypsych prn Smoker 31021091 F17.200 nicotine patch 14 mg dailyencou rage cessation Anemia 502726865 D64.9 monitor labs Asthenia 52852194 R53.1 PT OT eval and treatfall precaution sfrequent safety checks Cortical blindness 02211 006 H47.619 monitor Closed fra cture of first lumbar vertebra 7447323688 4166399 S32.019A PT OT eval and treatoxyco done 5 mg q6hr prnencoura ge oob at least tid Falls 976103231 R29.6 PT OT eval and treatfall precaution sfrequent safety checksfloo r mats-thick er mats orderedbed against the wall for safety Acute rete ntion of urine 680544434 R33.8 chronic johnson, replaced ito r outputlevo floxin 250 mg qd to 03/06 Constipation 63097848 K5 9.00 senna 17.2 dailycolac e bid [id number] CATRACHITA MCCAULEY NP [address] [address] 03/02/2022 13:20:21 03/05/2022 09:45:07 Cerebrovascular accident 260041722 I63.9 asa 81 mg dailyatorv astatin 80 mg dailymonit or neuros Acute rete ntion of urine 706262713 R33.8 chronic johnson, replaced ito r outputlevo floxin 250 mg qd to 03/06 [id number] CATRACHITA MCCAULEY NP [address] [address] 03/06/2022 12:03:07 03/20/2022 16:31:34 Acute retention of urine 387146041 R33.8 chronic johnson, replaced ito r outputlevo floxin 250 mg qd to 03/06 Chronic ob structive pulmonary disease 48363146 J44.9 trelegy dailycombi vent inhaler qid prn with spacermoni tor resp status Cerebrovas cular accident 628764768 I63.9 asa 81 mg dailyatorv astatin 80 mg dailymonit or neuros [id number] CATRACHITA MCCAULEY NP [address] [address] 03/09/2022 15:05:36 03/23/2022 20:06:38 Delusion 0625911 F22 risperdal 0.5 mg bid and qd prn-will need a [place] order for thispsych prn Cerebrovas cular accident 357492418 I63.9 asa 81 mg dailyatorv astatin 80 mg dailymonit or neuros Mixed anxi ety and depressive disorder 844346647 F41.8 zoloft 150 mg dailypsych prn [id number] MD IRVIN Huertas [address] [place] [address] [place] [address] 03/17/2022 17:49:22 04/02/2022 11:26:50 Delusion 9133544 F22 Continue risperdal 0.5 mg BID and qd prnSeems to be helping.Ps ych following. Cerebrovas cular accident 256897314 I63.89 Continue ASA 81 mg qd and atorvastat in 80 mg qd.Stable. Monitor for neuro changes. Mixed anxi ety and depressive disorder 554067515 F41.8 Continue sertraline 150 mg qdMood good today.Samia tor mood.Psych following Acute rete ntion of urine 480222900 R33.8 Continue johnson.Has failed voiding trial.Uro consult. Chronic ob structive pulmonary disease 14230035 J43.8 Continue trelegy qd and combivent QID.Monito r resp status Cortical blindness 83793 006 H47.619 Continues to need support with adjustment to new blindness. May be able to access resources through [employer].OT/P T as able. Dysphagia 15284635 I69.8 91 No longer needing supplement al g-tube feedings, taking all nutrition po.Continu e work with [employer] and vb net developer lusi eduardo allison. Gastroesop hageal reflux disease without esophagitis 764198641 K21.9 No current sxs.Contin ue omeprazole 20 mg qd and carafate 1 gm QID.Monito r sxs. Essential hypertension 89521469 I10 Good control on amlodipine 5 mg qd and metoprolol 25 mg BID.Monito r BP and labs Hypothyroidism 59659131 E03.8 Continue levothyrox ine 50 mcg qd.Monitor TSH Smoker 51221968 F17.200 Continue nicotine patch 14 mg qdContinue to encourage abstinence . Anemia 016080394 D64.89 Stable.Mon itor labs [id number] DAVID WALKER [address] [place] [address] [place] [address] 03/18/2022 12:43:44 03/25/2022 07:27:30 Delusion 8593130 F22 risperdal 0.5 mg bid and qd prn-will need a [place] order for thispsych prn Gastroesop hageal reflux disease without esophagitis 967964671 K21.9 omeprazole 20 mg dailycaraf ate 1gm ac/hs Acute rete ntion of urine 347395135 R33.8 chronic johnson, replaced 02/16monito r outputflom ax 0.4 mg dailylevof loxin 250 mg qd to 03/06 [id number] CATRACHITA MCCAULEY NP [address] [address] 03/25/2022 11:39:14 04/02/2022 11:48:38 Acute retention of urine 253859286 R33.8 chronic johnson, replaced 02/16monito r outputflom ax 0.4 mg dailylevof loxin 250 mg qd to 03/06voidin g trial today Delusion 9696939 F22 risperdal 0.5 mg bid and qd prn-will need a [employer] order for thispsych prnAIMs 0mood stable on this medicaiton Mixed anxi ety and depressive disorder 941383475 F41.8 zoloft 150 mg dailypsych prn [id number] CATRACHITA MCCAULEY NP [address] [address] 04/02/2022 12:52:06 04/08/2022 15:53:07 Mixed anxiety and depressive disorder 237472564 F41.8 zoloft 150 mg dailypsych prn Gastroesop hageal reflux disease without esophagitis 882233838 K21.9 omeprazole 20 mg dailycaraf ate 1gm ac/hs [id number] CATRACHITA MCCAULEY NP [address] [address] 04/06/2022 09:23:05 04/10/2022 09:40:04 Delusion 4765777 F22 risperdal 0.5 mg bid and qd prn-will need a [place] order to continue thispsych prnAIMs 0mood stable on this medicaiton Mixed anxi ety and depressive disorder 640279319 F41.8 zoloft 150 mg dailypsych prn Dysphagia 17499758 I69.8 91 No longer needing supplement al g-tube feedings, taking all nutrition po.Continu e work with [employer] and vb net developer luis eduardo morataya Cerebrovas cular accident 607570226 I63.89 ASA 81 mg qdatorvast atin 80 mg qd.Stable. Monitor for neuro changes. Cortical blindness 61411 006 H47.619 Continues to need support with adjustment to new blindness. May be able to access resources through [employer].OT/P T as able. Acute rete ntion of urine 301916839 R33.8 johnson d/c voiding wellflomax 0.4 mg dailyUro consult. Chronic ob structive pulmonary disease 36958908 J43.8 trelegy qdcombiven t QID.nicoti ne patch 7 mg to 05/05Monito r resp status Gastroesop hageal reflux disease without esophagitis 431148418 K21.9 No current sxs.omepra zole 20 mg qdcarafate 1 gm QID.Monito r sxs. Essential hypertension 78972949 I10 amlodipine 5 mg qdmetoprol ol 25 mg BID.Monito r BP and labs Hypothyroidism 43927500 E03.8 levothyrox ine 50 mcg qd.Monitor TSH Smoker 80733736 F17.200 Continue nicotine patch 7 mg qd to 05/05Contin ue to encourage abstinence . Anemia 782295330 D64.89 Stable.Mon itor labs [id number] DAVID WALKER JOYCE [address] [place] [address] 04/15/2022 11:44:22 04/21/2022 12:38:25 Dysphagia 89732108 I69.891 No longer needing supplement al g-tube feedings, taking all nutrition po.GT to be removed ontinu e work with [employer] and vb net developer luis eduardo allison. Delusion 9710251 F22 risperdal 0.5 mg bid and qd prn-will need a [employer] order to continue thispsych prnAIMs 0mood stable on this medication Cortical blindness 04093 006 H47.619 Continues to need support with adjustment to new blindness. May be able to access resources through [employer].OT/P T as able. [id number] DAVID WALKER JOYCE [address] [place] [address] 04/20/2022 12:29:42 05/05/2022 14:36:47 Anemia 485505103 D64.89 Stable.Mon itor labsiron 324 mg dailyvit C 500 mg daily [id number] DAVID WALKER JOYCE [address] [facility] [place] [address] 05/18/2022 08:36:45 05/20/2022 09:55:54 Wound of skin 831471928 T14.8XXA monitor for healing or signs of infectionf /u May 28 with surgeonoxy codone 5 mg q6hr prn for 3 days Delusion 3541462 F22 risperdal 0.5 mg bid and qd prn-will need a [place] order to continue thispsych prnAIMs 0mood stable on this medicaiton Mixed anxi ety and depressive disorder 309957672 F41.8 zoloft 50 mg dailypsych prn Dysphagia 18939249 I69.8 91 No longer needing supplement al g-tube feedings, taking all nutrition po.Continu e work with [employer] and vb net developer involvemen t. Cerebrovas cular accident 580325373 I63.89 ASA 81 mg qdatorvast atin 80 mg qd.Stable. Monitor for neuro changes. Cortical blindness 31566 006 H47.619 Continues to need support with adjustment to new blindness. May be able to access resources through [employer].OT/P T as able.artif icial tears q4hr prn Acute rete ntion of urine 305525009 R33.8 johnson d/c voiding wellUro consult. Chronic ob structive pulmonary disease 13074291 J43.8 trelegy qdcombiven t QID.Monito r resp status Gastroesop hageal reflux disease without esophagitis 826651968 K21.9 No current sxs.omepra zole 20 mg qdcarafate 1 gm QID.Monito r sxs. Essential hypertension 62717313 I10 amlodipine 5 mg qdmetoprol ol 25 mg BID.Monito r BP and labs Hypothyroidism 87236252 E03.8 levothyrox ine 50 mcg qd.Monitor TSH Smoker 33463270 F17.200 Continue to encourage abstinence . Anemia 154099207 D64.89 mvi with ironvit c 500 dailyMonit or labs [id number] CATRACHITA MCCAULEY NP [address] [address] 05/20/2022 10:07:33 05/22/2022 15:32:19 Wound of skin 203389808 T14.8XXA monitor for healing or signs of infectionf /u May 28 with surgeonoxy codone 5 mg q6hr prn for 3 days Mixed anxi ety and depressive disorder 031719546 F41.8 zoloft 50 mg dailypsych prn Delusion 7407476 F22 risperdal 0.5 mg bid and qd prn-will need a [place] order to continue thismood stable no GDRpsych prnAIMs 0mood stable on this medicaiton [id number] CATRACHITA MCCAULEY NP [address] [address] 05/25/2022 12:39:04 05/28/2022 15:23:06 Delusion [id number] F22 risperdal 0.5 mg bid and qd prn-has a temporary [place] order to Novemberpr azosin 1 mg hs for nightmares trazodone 25 mg hsstill delusional no GDRpsych prnAIMs 0mood stable [facility] Wound of skin [id number] T14.8XXA monitor for healing or signs of infectionf /u May 28 with surgeonoxy codone 5 mg q6hr prn for 3 days [id number] Mary Ren MD [address] [address] 05/27/2022 08:04:13 05/29/2022 16:02:13 History of cerebrovascular accident 909799581 Z86.73 PT/OT/SLPf u neurologya torvastati n 80 mg dailyASA 81 mg dailyfu hematology for evaluation possible antiphosph olipid syndromePT /OT/[employer] prn Chronic ob structive pulmonary disease 27763460 J43.8 Combivent 20-100: 1 puff qidTrelegy Ellipta 100-62.5-2 5: one inhalation dailywill monitor Hypothyroidism 63025670 E03.8 levothyrox ine 50 mcg dailywill monitor Mixed anxi ety and depressive disorder 815237929 F41.8 prazosin 1 mg at hstrazodon e 25 mg at hsrisperid one 0.5 mg bid and daily prnsertral ine 50 mg dailywill monitor Essential hypertension 20504808 I10 metoprolol 25 mg bidwill monitor Gastroesop hageal reflux disease without esophagitis 051931086 K21.9 with history hiatal hernia s/p repair:ome prazole 20 mg dailysucra lfate qidwill monitor Retention of urine 90012 4002 R33.8 tamsulosin 0.4 mg dailywill monitor [id number] CATARCHITA MCCAULEY NP [address] [address] 05/29/2022 10:43:56 06/02/2022 16:16:30 Dysphagia 86314044 I69.891 No longer needing supplement al g-tube feedings, taking all nutrition po.Continu e work with [employer] and [employer] developer luis eduardo moratayadiet advanced by GI Wound of skin 361595731 T14.8XXA monitor for healing or signs of infectionf /u May 28 with surgeonoxy codone 5 mg q6hr prn for 3 days Delusion 7205191 F22 risperdal 0.5 mg bid and qd prn-has a temporary [place] order to Novemberpr azosin 1 mg hs for nightmares trazodone 25 mg hsstill delusional no GDRpsych prnAIMs 0mood stable on this medicaiton [id number] CATRACHITA MCCAULEY NP [address] [address] 07/16/2022 11:11:24 07/21/2022 15:26:40 History of cerebrovascular accident 946264150 Z86.73 PT/OT/SLPf u neurologya torvastati n 80 mg dailyASA 81 mg dailyfu hematology for evaluation possible antiphosph olipid syndromePT /OT/[employer] prn Chronic ob structive pulmonary disease 76530557 J43.8 Combivent 20-100: 1 puff qidTrelegy Ellipta 100-62.5-2 5: one inhalation dailywill monitor Hypothyroidism 13651822 E03.8 levothyrox ine 50 mcg dailywill monitor Mixed anxi ety and depressive disorder 668417462 F41.8 prazosin 1 mg at hstrazodon e 25 mg at hsrisperid one 0.5 mg bid and daily prnsertral ine 50 mg dailywill monitor Essential hypertension 73477264 I10 metoprolol 25 mg bidwill monitor Gastroesop hageal reflux disease without esophagitis 848374443 K21.9 with history hiatal hernia s/p repair:ome prazole 20 mg dailysucra lfate qidwill monitor Retention of urine 45869 4002 R33.8 tamsulosin 0.4 mg dailywill monitor [id number] CATRACHITA MCCAULEY NP IRVIN COOK [address] [place] [address] 5 07/29/2022 11:59:49 08/14/2022 12:24:33 COVID-19 365740475 U07.1 07/23 covid positiveco nsider ivf for anorexiase nd to ED for decompensa tiontx the symptoms [id number] CATRACHITA MCCAULEY NP [address] [address] 5 07/30/2022 11:25:42 08/14/2022 12:44:14 COVID-19 507524802 U07.1 07/23 covid positiveco nsider ivf for anorexiase nd to ED for decompensa tiontx the symptoms [id number] [facility]ACH[facility] [address] [place] [address] 07/31/2022 10:28:46 08/14/2022 13:08:32 COVID-19 552889389 U07.1 07/23 covid positiveco nsider ivf for anorexiase nd to ED for decompensa tiontx the symptoms [id number] CATRACHITA MCCAULEY NP [address] [address] 5 08/03/2022 10:40:50 08/14/2022 13:37:43 COVID-19 874788116 U07.1 07/23 covid positive-r ecovered by date and swab 08/02consi leobardo ivf for anorexiase nd to ED for decompensa tiontx the symptoms CATRACHITA MCCAULEY NP [address] [address] 09/14/2022 15:26:11 09/16/2022 14:19:33 Seizure 44740147 R56.9 keppra 500 mg bidmonitor for any seizure activity History of cerebrovascular accident 504238074 Z86.73 PT/OT/SLPf u neurologya torvastati n 80 mg daily.ASA 81 mg dailyfu hematology for evaluation possible antiphosph olipid syndromePT /OT/[employer] prn Chronic ob structive pulmonary disease 09665720 J43.8 Combivent 20-100: 1 puff qid.Treleg y Ellipta 100-62.5-2 5: one inhalation daily.will monitor Hypothyroidism 96325528 E03.8 levothyrox ine 50 mcg daily.will monitor Mixed anxi ety and depressive disorder 811952043 F41.8 prazosin 1 mg at hs.trazodo ne 25 mg at hs.risperi done 0.5 mg bid.sertra line 50 mg daily.will monitor Essential hypertension 16056116 I10 metoprolol 25 mg bid.will monitor Gastroesop hageal reflux disease without esophagitis 543809438 K21.9 with history hiatal hernia s/p repair:ome prazole 20 mg daily.sucr alfate qid.will monitor Retention of urine 21844 4002 R33.8 tamsulosin 0.4 mg daily.will monitor Delusion 4733083 F22 risperdal 0.5 mg bid-has a temporary [place] order to Novemberpr azosin 1 mg hs for nightmares trazodone 25 mg hs.still delusional no GDRpsych prnAIMs 0mood stable on this medicaiton Asthenia 05124254 R53.1 PT OT eval and treatfall precaution sfrequent safety checks Cortical blindness 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 May be able to access resources through [employer] [facility] [employer].OT/P T as able.artif icial tears q4hr prn [id number] DAVID WALKER [address] [place] [address] [place] [address] 5 09/23/2022 10:53:06 09/29/2022 10:36:39 Seizure 05750789 R56.9 keppra 500 mg bidmonitor for any seizure activity Mixed anxi ety and depressive disorder 219064696 F41.8 prazosin 1 mg at hs.trazodo ne 25 mg at hs.risperi done 0.5 mg bid.sertra line 50 mg daily.will monitor [id number] Mary Ren MD [address] [address] 10/02/2022 10:07:57 10/06/2022 08:26:50 Chronic obstructive pulmonary disease 26483354 J43.8 Combivent 20-100: 1 puff qidTrelegy Ellipta 100-62.5-2 5: one inhalation dailywill monitor Mixed anxi ety and depressive disorder 531030715 F41.8 prazosin 1 mg at hstrazodon e 25 mg at hsrisperid one 0.5 mg bidsertral ine 50 mg dailywill monitor Seizure disorder 1968114 02 G40.909 levetirace nava 500 mg bidwill monitor History of cerebrovascular accident 817857261 Z86.73 fu neurologya torvastati n 80 mg dailyASA 81 mg dailyPT/OT prn Essential hypertension 88782241 I10 metoprolol 25 mg bidamlodip ine 5 mg dailywill monitor Gastroesop hageal reflux disease without esophagitis 398003499 K21.9 with history hiatal hernia s/p repair:ome prazole 20 mg dailysucra lfate qidwill monitor Hypothyroidism 88362333 E03.8 levothyrox ine 50 mcg dailywill monitor Chronic pain 87634232 G8 9.29 ibuprofen 600 mg q6h prnAPAP 650 mg q4h prnphysiat ry prnPT/OT prn [id number] CATRACHITA MCCAULEY NP [address] [address] 11/20/2022 11:37:43 11/24/2022 13:12:12 Seizure 07894062 R56.9 keppra 500 mg bidmonitor for any seizure activity History of cerebrovascular accident 873587764 Z86.73 PT/OT/SLPf u neurologya torvastati n 80 mg daily.ASA 81 mg dailyfu hematology for evaluation possible antiphosph olipid syndromePT /OT/[employer] prn Chronic ob structive pulmonary disease 59743561 J43.8 Combivent 20-100: 1 puff qid.David Polo 100-62.5-2 5: one inhalation daily.will monitor Hypothyroidism 93858596 E03.8 levothyrox ine 50 mcg daily.will monitor Mixed anxi ety and depressive disorder 404572433 F41.8 prazosin 1 mg at hs.trazodo ne 25 mg at hs.risperi done 0.5 mg bid.-decre ased to hssertrali ne 50 mg daily.AIMs 0will monitor Essential hypertension 67696775 I10 metoprolol 25 mg bid.will monitor Gastroesop hageal reflux disease without esophagitis 100123238 K21.9 with history hiatal hernia s/p repair:ome prazole 20 mg daily.sucr alfate qid.will monitor Retention of urine 90884 4002 R33.8 tamsulosin 0.4 mg daily.will monitor Delusion 5446565 F22 risperdal 0.5 mg bid-decrea se to hs onlyprazos in 1 mg hs for nightmares trazodone 25 mg hs.psych prnAIMs 0mood stable on this medication Asthenia 78034781 R53.1 PT OT eval and treatfall precaution sfrequent safety checks Cortical blindness 31418 006 H47.619 Continues to need support with adjustment to new blindness. May be able to access resources through [facility].OT/P T as able.artif icial tears q4hr prn [id number] DAVID WALKER [address] [place] [address] 5 12/02/2022 12:51:02 12/04/2022 14:10:15 Mixed anxiety and depressive disorder 501844838 F41.8 prazosin 1 mg at hs.trazodo ne 25 mg at hs.risperi done 0.5 mg bid.-decre ased to hs-failed GDR back to bidsertral ine 50 mg daily.AIMs 0will monitor [id number] MD IRVIN Huertas [address] [place] [address] 5 12/24/2022 20:00:44 12/28/2022 11:42:57 Edema of lower extremity 692963347 R60.0 Minimal actual edema, but pt has gained 25# over the past 8 months. I suspect this is primarily wt. related, as no evidence of fluid overload.W ill use ASHISH wraps and monitor effect. [id number] MD IRVIN Huertas [address] [place] [address] 02/19/2023 18:07:36 03/02/2023 11:33:19 Seizure 35801228 G40.89 Last seizure was in ont inue Keppra 500 mg BIDMonitor for seizure activityF/ u with neuro as planned. History of cerebrovascular accident 598294713 I63.89 Continues to need PT/OT for safety and functionin g.No longer on rehab schedule, but reactivate d periodical ly.Continu e atorvastat in 80 mg qd and ASA 81 mg qdWas supposed to see heme to evaluate for anti-phosp holipid syndrome, unclear if that ever happened.W ill have nursing f/u Chronic ob structive pulmonary disease 31807529 J43.8 No current sxs.Contin ue Combivent 20/100 mcg qid and Trelegy Ellipta 100/62.5/2 5 mcg qd.Monitor resp status Hypothyroidism 63399733 E03.8 Hasn't had TSH in a whileConti nue levothyrox ine 50 mcg qdWill check TSH and FT4 with next labs. Essential hypertension 02768288 I10 Some borderline SBPs.Victorina nue metoprolol 25 mg BIDMonitor BP and labs Gastroesop hageal reflux disease without esophagitis 832098840 K21.9 No current sxs.Contin ue omeprazole 20 mg qd and sucralfate qid.Monito r sxs Delusion 8022990 F22 Continues with some delusions, but not as upsetting to pt.Continu e risperdal 0.5 mg qhs, prazosin 1 mg qhs for nightmares , trazodone 25 mg qhs, and melatonin 5 mg qhs and 10 mg qhs prn.Mood good today.Samia tor delusions and mood.Psych follows Cortical blindness 61224 006 H47.612 H47.611 Continues to need support with blindness. OT/PT as able.Victorina nue artificial tears q 4 hrs prn Edema of l ower extremity 026335272 R60.0 Remains stableCont inue ASHISH wraps and monitor effect. Mixed anxi ety and depressive disorder 508746002 F41.8 In a good mood today.Cont inue meds as above and sertraline 50 mg qd.Psych follows. [id number] DAVID WALKER JOYCE [address] [place] [address] [place] [address] 5 02/24/2023 10:26:04 02/26/2023 16:10:54 Seizure 75632136 R56.9 keppra 500 mg bidmonitor for any seizure activity History of cerebrovascular accident 935327962 Z86.73 PT/OT/SLPf /u neurology prnatorvas tatin 80 mg daily.ASA 81 mg dailyPT/OT /[employer] prn Chronic ob structive pulmonary disease 32640144 J43.8 Combivent 20-100: 1 puff qid.Treleg y Ellipta 100-62.5-2 5: one inhalation daily.will monitor Hypothyroidism 06698217 E03.8 levothyrox ine 50 mcg daily.will monitor Mixed anxi ety and depressive disorder 589789090 F41.8 prazosin 1 mg at hs.trazodo ne 25 mg at hs.risperi done 0.5 mg hssertrali ne 50 mg daily.AIMs 0will monitor Essential hypertension 71349315 I10 metoprolol 25 mg bid.will monitor Gastroesop hageal reflux disease without esophagitis 673154844 K21.9 with history hiatal hernia s/p repair:ome prazole 20 mg daily.sucr alfate qid.will monitor Retention of urine 23843 4002 R33.8 tamsulosin 0.4 mg daily.will monitor Delusion 9004698 F22 risperdal 0.5 mg hsprazosin 1 mg hs for nightmares trazodone 25 mg hs.psych prnAIMs 0mood stable on this medication Asthenia 50063731 R53.1 PT OT eval and treatfall precaution sfrequent safety checks Cortical blindness 77196 006 H47.619 Continues to need support with adjustment to new blindness. May be able to access resources through [employer] [facility].OT/P T as able. [id number] DAVID WALKER [address] [place] [address] [place] [address] 5 04/19/2023 14:52:46 04/23/2023 11:02:39 Seizure 06052143 R56.9 keppra 500 mg bidmonitor for any seizure activity History of cerebrovascular accident 216510058 Z86.73 PT/OT/SLPf /u neurology prnatorvas tatin 80 mg daily.ASA 81 mg dailyPT/OT /[employer] prn Chronic ob structive pulmonary disease 63533358 J43.8 Combivent 20-100: 1 puff qid.Treleg y Ellipta 100-62.5-2 5: one inhalation daily.will monitor Hypothyroidism 59122252 E03.8 levothyrox ine 50 mcg daily.will monitor Mixed anxi ety and depressive disorder 116544020 F41.8 prazosin 1 mg at hs.trazodo ne 25 mg at hs.risperi done 0.5 mg hssertrali ne 50 mg daily.AIMs 0will monitor Essential hypertension 66431936 I10 metoprolol 25 mg bid.will monitor Gastroesop hageal reflux disease without esophagitis 854730778 K21.9 with history hiatal hernia s/p repair:ome prazole 20 mg daily.sucr alfate qid.will monitor Retention of urine 80687 4002 R33.8 tamsulosin 0.4 mg daily.will monitor Delusion 5348190 F22 risperdal 0.5 mg hsprazosin 1 mg hs for nightmares trazodone 25 mg hs.psych prnAIMs 0mood stable on this medication Asthenia 43759147 R53.1 PT OT eval and treatfall precaution sfrequent safety checks Cortical blindness 04980 006 H47.619 Continues to need support with adjustment to new blindness. May be able to access resources through [employer] [facility] [employer].OT/P T as able. [id number] DAVID WALKER [address] [place] [address] [place] [address] 5 05/07/2023 14:02:17 05/11/2023 12:30:53 COVID-19 950379121 U07.1 05/07 covid positiveco nsider ivf for anorexiase nd to ED for decompensa tiontx the symptoms [id number] [place]ID [place] [address] 5 05/10/2023 12:31:43 05/14/2023 13:27:17 COVID-19 531404200 U07.1 05/07 covid positiveco nsider ivf for anorexiase nd to ED for decompensa tiontx the symptoms [id number] CATRACHITAAilyn MCCAULEY, [employer] OPERATOR IR[place] [facility] [address] 5 05/12/2023 12:55:40 05/14/2023 14:26:23 COVID-19 002092147 U07.1 05/07 covid positiveco nsider ivf for anorexiase nd to ED for decompensa tiontx the symptoms [id number] CATRACHITAAilyn MCCAULEY, [employer] OPERATOR IRVIN [facility] [place] [address] 05/14/2023 11:19:42 05/20/2023 16:12:02 COVID-19 859622332 U07.1 05/07 covid positive -asymptoma tic, recovered by dateconsid er ivf for anorexiase nd to ED for decompensa tiontx the symptoms [id number] CATRACHITAAilyn MCCAULEY, [employer] OPERATOR IRVIN [facility] [place] [address] 5 05/24/2023 12:11:55 05/26/2023 11:01:17 Delusion 6352225 F22 risperdal 0.25 mg hsprazosin 1 mg hs for nightmares trazodone 25 mg hs.psych prnAIMs 0mood stable on this medication Pain of le ft shoulder joint 5508282978 2720561 M25.512 lidocaine 4% patch dailygentl y rom [id number] Caroline Daley MD IRVIN COOK [address] [place], [place] [address] [address] 06/22/2023 20:48:49 07/19/2023 09:11:20 Delusion 0855800 F22 Continue risperdal 0.25 mg qhs, prazosin 1 mg qhs for nightmares , trazodone 25 mg qhs, and melatonin 5 mg qhs and 10 mg qhs prn.Mood good today.Samia tor delusions and mood.Psych follows Pain of le ft shoulder joint [id number] 9097772 M25.512 Continue lidocaine 4% patch qd, APAP 650 mg q 4 hrs prn and ibuprofen 600 mg q 6 hrs prn.OT as needed.Alyson bean sxs. COVID-19 333073573 U07.1 Tested + 05/07/23Now recovered. Monitor for sequelae. Cortical blindness 88345 006 H47.612 H47.611 Continues to need support with blindness. OT/PT as able.Victorina nue artificial tears q 4 hrs prn History of cerebrovascular accident 365232773 I63.89 Continue atorvastat in 80 mg qd and ASA 81 mg qdMonitor neuro sxs. Seizure 07434160 G40.89 Last seizure was in 3Cont inue Keppra 500 mg BIDMonitor for seizure activityF/ u with neuro as planned. Chronic ob structive pulmonary disease 63847527 J43.8 No current sxs.Contin ue Combivent 20/100 mcg qid and Trelegy Ellipta 100/62.5/2 5 mcg qd.Monitor resp status Hypothyroidism 57516915 E03.8 Hasn't had TSH in a while, was ordered in 3Cont inue levothyrox ine 50 mcg qdDoesn't look like TSH ever got done, will reorder. Essential hypertension 55666156 I10 Some borderline SBPs.Victorina nue metoprolol 25 mg BIDMonitor BP and labs Gastroesop hageal reflux disease without esophagitis 401534844 K21.9 No current sxs.Contin ue omeprazole 20 mg qd and sucralfate qid.Monito r sxs Edema of l ower extremity 308625547 R60.0 Remains stableCont inue ASHISH wraps and monitor effect. Mixed anxi ety and depressive disorder 090931760 F41.8 In a good mood today.Cont inue meds as above and sertraline 50 mg qd.Psych follows. [id number] DAVID WALKER [address] [place] [address] rd [place] [address] 5 08/11/2023 12:07:15 08/17/2023 14:52:55 Delusion 2121401 F22 Continue risperdal 0.25 mg qhs, prazosin 1 mg qhs for nightmares , trazodone 25 mg qhs, and melatonin 5 mg qhs and 10 mg qhs prn.Mood good today.Samia tor delusions and mood.Psych follows Pain of le ft shoulder joint 2529811575 4385912 M25.512 Continue lidocaine 4% patch qd, APAP 650 mg q 4 hrs prn and ibuprofen 600 mg q 6 hrs prn.OT as needed.Mon itor sxs. Cortical blindness 01262 006 H47.612 H47.611 Continues to need support with blindness. OT/PT as able.Victorina nue artificial tears q 4 hrs prn History of cerebrovascular accident 345504789 I63.89 Continue atorvastat in 80 mg qd and ASA 81 mg qdMonitor neuro sxs. Seizure 82215164 G40.89 Last seizure was in 3Cont inue Keppra 500 mg BIDMonitor for seizure activityF/ u with neuro as planned. Chronic ob structive pulmonary disease 31031500 J43.8 No current sxs.Contin ue Combivent 20/100 mcg qid and Trelegy Ellipta 100/62.5/2 5 mcg qd.Monitor resp status Hypothyroidism 44176676 E03.8 Hasn't had TSH in a while, was ordered in 3Cont inue levothyrox ine 50 mcg qdDoesn't look like TSH ever got done, will reorder. Essential hypertension 41006055 I10 Some borderline SBPs.Victorina nue metoprolol 25 mg BIDMonitor BP and labs Gastroesop hageal reflux disease without esophagitis 817601911 K21.9 No current sxs.Contin ue omeprazole 20 mg qd and sucralfate qid.Monito r sxs Edema of l ower extremity 746841021 R60.0 Remains stableCont inue ASHISH wraps and monitor effect. Mixed anxi ety and depressive disorder 307577792 F41.8 In a good mood today.Cont inue meds as above and sertraline 50 mg qd.Psych follows. COVID-19 263519982 U07.1 Tested + 05/07/23Now recovered. Monitor for sequelae. Retention of urine 70646 4002 R33.8 tamsulosin 0.4 mg daily.will monitor Asthenia 68767179 R53.1 PT OT eval and treatfall precaution sfrequent safety checks [id number] Mary Ren MD [address] [place] [address] 10/06/2023 06:55:08 10/12/2023 10:39:30 Mixed anxiety and depressive disorder 892210689 F41.8 prazosin 1 mg at hstrazodon e 25 mg at hsrisperid one 0.25 mg bidsertral ine 50 mg dailywill monitor Essential hypertension 52220498 I10 metoprolol 25 mg bidamlodip ine 5 mg dailywill monitor Chronic pain 77592659 G8 9.29 ibuprofen 600 mg q6h prnAPAP 650 mg q4h prnphysiat ry prnLidocai ne patch to left shoulder dailyPT/OT prn History of cerebrovascular accident 582299739 I63.89 fu neurology prnatorvas tatin 80 mg dailyASA 81 mg dailyPT/OT prn Gastroesop hageal reflux disease without esophagitis 696994372 K21.9 with history hiatal hernia s/p repair:ome prazole 20 mg dailysucra lfate bidwill monitor Retention of urine 47173 4002 R33.8 tamsulosin 0.4 mg dailywill monitor Chronic ob structive pulmonary disease 88471894 J43.8 Combivent 20-100: 1 puff qidTrelegy Ellipta 100-62.5-2 5: one inhalation dailyalbut ankit HFA: 2 puffs q4h prnwill monitor Hypothyroidism 34756082 E03.8 levothyrox ine 50 mcg dailywill monitor Seizure disorder 8499166 02 G40.909 levetirace nava 500 mg bidwill monitor [id number] JADA ALEGRIA [address] [place] [address] [place] [address] 5 11/11/2023 10:53:07 11/15/2023 14:52:42 Delusion 2140117 F22 risperdal 0.25 mg-stopped continue prazosin 1 mg qhs for nightmares ,trazodone 25 mg qhs, and melatonin 5 mg qhs and 10 mg qhs prn.Monito r delusions and mood.will orded labs for LFTs for 11/11 and if within range will start mood stabilizer lamictal 12.5 mg at hs [id number] TONYJADA JEFFERS [address] [place] [address] 5 11/24/2023 09:31:42 2023 11:51:45 Delusion 0778533 F22 risperdal 0.25 mg-stopped continue prazosin 1 mg qhs for nightmares ,trazodone 25 mg qhs, and melatonin 5 mg qhs and 10 mg qhs prn.Monito r delusions and mood.victorina nue lamictal 12.5 mg at hs for mood stablizing . [id number] TONYEDWARDO NICOLE [address] [place] [address] 12/17/2023 09:43:36 12/21/2023 11:25:21 Mixed anxiety and depressive disorder 925847088 F41.8 prazosin 1 mg at hstrazodon e 25 mg at hssertrali ne 50 mg dailyconti nue lamictal 12.5 mg at hs for mood stabilizin g.Nursing reports mood has been stable, pt appears calmer. Essential hypertension 31599954 I10 metoprolol 25 mg bidamlodip ine 5 mg dailymonit or bp Chronic pain 62381279 G8 9.29 ibuprofen 600 mg q6h prnAPAP 650 mg q4h prnphysiat ry prnLidocai ne patch to left shoulder dailyPT/OT prn History of cerebrovascular accident 986204677 I63.89 fu neurology prnatorvas tatin 80 mg dailyASA 81 mg dailyPT/OT prn Gastroesop hageal reflux disease without esophagitis 572766036 K21.9 with history hiatal hernia s/p repair:ome prazole 20 mg dailysucra lfate bidwill monitor Retention of urine 98872 4002 R33.8 tamsulosin 0.4 mg dailywill monitor Chronic ob structive pulmonary disease 43515158 J43.8 Combivent 20-100: 1 puff qidTrelegy Ellipta 100-62.5-2 5: one inhalation dailyalbut ankit HFA: 2 puffs q4h prnwill monitor Hypothyroidism 51518168 E03.8 levothyrox ine 50 mcg dailywill monitor Seizure disorder 4828636 02 G40.909 levetirace nava 500 mg bidwill monitor [id number] JADA ALEGRIA [address] [place] [address] 01/05/2024 13:31:26 01/11/2024 11:53:28 Falls 354698929 R29.6 01/04witnes sed fallNursin g to reiterated that she needs to call for assistance with transfers and make sure wheelchair is in locked position.m onitor for c/o of post fall discomfort .monitor VS per facility fall protocal. [id number] JADA ALEGRIA [address] [address] 01/11/2024 12:07:13 01/17/2024 16:13:17 Delusion 4002239 F22 Plan of care discussed with HCP to obtain urinalysis and blood work first to r/o infectious cause of mood changes.if normal labs, will restart risperdal and have psych revisit patient on 01/17/24. Mixed anxi ety and depressive disorder 864419889 F41.8 prazosin 1 mg at hstrazodon e 25 mg at hssertrali ne 50 mg dailyconti nue lamictal 12.5 mg at hs for mood stabilizin g. [id number] JADA ALEGRIA [address] [address] 01/20/2024 14:33:42 02/02/2024 10:22:01 Mixed anxiety and depressive disorder 171970664 F41.8 psychiatric aide instructor recommends increasing lamictal to 25 mg BID, discussed with HCP and wants to try increase.n mayteing will update provider with changes if noted by staff or if partner reports. prazosin 1 mg at hstrazodon e 25 mg at hssertrali ne 50 mg dailyconti nue lamictal 12.5 mg at hs for mood stabilizin g. Test resul t to patient personally 714065571 Z71.2 urinalysis negative for acute infectionb lood CBC. BMP values all normalHCP updated [id number] Caroline Daley MD [address] [place] [address] 02/11/2024 19:08:55 02/29/2024 08:00:32 Mixed anxiety and depressive disorder 810333946 F41.8 Continue lamictal 25 mg BID, prazosin 1 mg at qhs, trazodone 25 mg qhs and sertraline 50 mg qd.Monitor mood and behaviors. Psych follows. 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 Pain of le ft shoulder joint [id number] M25.512 Continue lidocaine 4% patch qd, APAP 650 mg q 4 hrs prn and ibuprofen 600 mg q 6 hrs prn.OT as needed.Mon itor sxs. Cortical blindness 51862 [id number] H47.612 H47.611 Continues to need support with blindness. OT/PT as able.Victorina nue artificial tears q 4 hrs prn History of cerebrovascular accident [id number] I63.89 No new sxs.Contin ue atorvastat in 80 mg qd and ASA 81 mg qdMonitor neuro sxs. Seizure [id number] G40.89 No recent seizure activity.L ast seizure was in 3Cont inue Keppra 500 mg BIDMonitor for seizure activityF/ u with neuro as planned. Chronic ob structive pulmonary disease 43290763 J43.8 No recent exacerbati ons.Contin ue Combivent 20/100 mcg qid, Trelegy Ellipta 100/62.5/2 5 mcg qd, and albuterol MDI 2 puffs q 4 hrs prn.Monito r resp status Hypothyroidism [id number] E03.8 TSH done 01/12 was high, but no T4 was done.Victorina nue levothyrox ine 50 mcg qdWill order repeat TSH with FT4 and adjust dose as needed. Essential hypertension [id number] I10 BP in good control.Co ntinue metoprolol 25 mg BIDMonitor BP and labs Gastroesop hageal reflux disease without esophagitis [id number] K21.9 No current sxs.Contin ue omeprazole 20 mg qd and sucralfate qid.Monito r sxs Edema of l ower extremity [id number] R60.0 StableCont inue ASHISH wraps daily.Samia tor COVID-19 [id number] U07.1 Tested + 05/07/23Now recovered. Monitor for sequelae. [id number] JADA ALEGRIA IRVIN COOK [address] [place] [address] 02/18/2024 10:37:18 02/29/2024 08:39:11 Ankle edema [id number] R60.0 bilateral and chronicno increased or pitting edemashe has + rom she denies any pain or discomfort .she recently received new leg rest for wheelchair .encourage d elevation when sitting dependent for long periods of time. Health Concerns Section Related Observation LastModified by Organization Detai ls LastModified Time None Recorded Concern Status LastModified by Organization Details LastModified Time None Recorded Advance Directives Directive Y: Payers Insurance Date Sequence Insurance Name Policy Number Policy Snyder Covered Member ID Snyder Member ID Guarantor Name 12/21/2023 1 [facility] [id number] Monica Miller [id number] Monica Paul 02/11/2024 2 [place] [facility] Monica Miller [id number] Monica Paul 02/11/2024 1 [place] B[place] [facility] Monica Miller [id number] Monica Paul Notes Date Note Type Note Provider Name and Address Organization Details Recorded Time 01/05/2024 text/html ROS as noted in the HPI Patient is a 62 yr old female seen today for acute rounding visit s/p witnessed fall today. Nursing reports that patient attempted to stand up from wheelchair that was not locked and lost her balance causing her to fall backwards and hit her the back of her head on the wall, and slid down onto the floor, there was no LOC. On exam she is alert and verbal, at her baseline, she denies any headache, nausea or dizziness. She tells me that she feels fine, denies any discomfort. she is encouraged to notify nursing of any new concerns post fall. There are no other nursing concerns. Past history of depression, anxiety, hallucinations, cognitive impairment , cerebral infarction with cortical blindness , seizures, COPD, HTN JADA ALEGRIA [address] [facility], [address], [place], [address], [facility] 01/05/2024 14:44:30 01/11/2024 text/html ROS as noted in the HPI This is a 63 yr old female seen today for acute rounding visit. Her significant other/HCP has concerns with recent behaviors, he states that she has been more delusional, accusatory and having night fuller. He believes the mood change is due to her not taking respirdal anymore, he reports this happen previously when med was stopped, he is requesting to restart medication. Past history of depression, anxiety, hallucinations, cognitive impairment , cerebral infarction with cortical blindness , seizures, COPD, HTN TONY INCOLE, JADA [address] [facility], [address], [place], [address], [facility] [employer] [facility] 01/27/2024 19:15:41 01/20/2024 text/html ROS as noted in the HPI This is a 63 yr old female seen today for acute rounding visit follow up.On exam she is stable, sitting in dining common area, appears at baseline.Recent urinalysis negative for any infectious disease, nursing reports no changes in behavior. She was seen by psychiatric aide instructor on 01/16 with recommendations to increased lamictal. Past history of depression, anxiety, hallucinations, cognitive impairment , cerebral infarction with cortical blindness , seizures, COPD, HTN TONY NICOLE, JADA [address] [facility], [address], [place], [address], [facility] [employer] [facility] 01/27/2024 19:39:29 02/11/2024 text/html This is a 63 yo woman, LTC resident, who I am seeing today for a routine MD rounding visit.She has been here since 01/30/22 after a long and complicated hospitalization. Her most sig. problem was Extensive evolving subacute supratentorial and infratentorial infarctions corresponding to the bilateral posterior circulation with petechial hemorrhage as described . Her most sig. sequelae is cortical blindness. She is followed by psych and recently had her lamictal increased with improved mood and behaviors.She continues to gain wt. I talk to Winston (her SO and guardian) today and he notes that she is getting more and more confused. Also her right shoulder is bothering her more.She had a cortisone injection around 09/2023 and it helped a lot. He thinks she needs another one.When I go in to see her she is asleep, but wakes a little and tells me she's fine. Her PMH includes HTN, s/p extensive bilateral supratentorial and infratentorial CVA in posterior circulation distribution with cortical blindness, encephalopathy, GERD, hypothyroidism, anemia, depression, severe COPD, and hx of tobacco use. Caroline Daley MD [address] [facility], [address], [place], [address], [facility] 02/13/2024 01:44:43 02/18/2024 text/html ROS as noted in the HPI Monica is an 63 yr old women seen today for acute rounding visit per nursing request. Nursing report left ankle swelling worse than than usually. on exam she is OOB sitting in wheelchair with legs dependent, she is doing ok. Baseline she has lower extremity ankle edema, there is no increase swelling noted on exam, she is wearing support stocking. Past history of depression, anxiety, hallucinations, cognitive impairment , cerebral infarction with cortical blindness , seizures, COPD, HTN. JADA ALEGRIA [address] [facility], [address], [place], [address], [facility] 02/18/2024 13:08:21 OBGyn Episode No OBEpisode recorded.
--- OUTSIDE RECORDS SUMMARY | 2025-07-13 06:33 | XMS_ITS | Clinical Summary ---
Author Organization [facility] Address [address] [place] [address] Care Team Providers Care Textile Supervisor Name Role Phone Unavailable Primary Care Provider Unavailabl e Social History Tobacco Use Types Packs/Day Years Used Date Smoking Tobacco: Never Assessed Comments Unknown Sex and Gender Information Value Date Recorded Sex Assigned at Not on file Legal Sex Female 1:52 PM EDT Gender Identity Not on file Sexual Orientation Not on file Plan of Treatment Health Maintenance Due Date Last Done Comments Advance Care Planning 1960 Hepatitis C Virus Screening 1960 DTaP/Tdap/Td Vaccines (1 - Tdap) 1977 Pneumococcal Vaccines 50+ (1 of 1 - PCV) 2008 Zoster (Shingles) Vaccine (1 of 2) 2008 COVID-19 Vaccine ( - 2023-2 5 season) 2025 RSV Vaccine 50 years and old er and Patients (1 - 1-dose 75+ series) 2033 Hepatitis B Vaccines Aged Out No long er eligible based on patient's age to complete this topic
--- OUTSIDE RECORDS SUMMARY | 2025-07-13 06:33 | XMS_ITS | Clinical Summary ---
Author Organization [facility] Address [address] [place] [address] Phone Care Team Providers Care Forgeman Helper Name Role Phone Nasrin Snell MD Primary Care Prov ider Allergies Active Allergy Reactions Criticality Noted Date Comments Codeine 12/24/2017 Jittery Methylprednisolone 04/16/2016 Local reaction (itch at injection site) Medications levothyroxine (SYNTHROID, LEVOTHROID) 50 mcg tablet Take 1 tablet (50 mcg total) by mouth 1 (one) time each day. 2 Active amLODIPine (NORVASC) 5 mg tablet Take 1 tablet (5 mg total) by mouth 1 (one) time each day. 2 Active hydrOXYzine HCL (ATARAX) 25 mg tablet TAKE 1-2 TABS BY MOUTH DAILY NEEDED FOR ANXIETY. 2 Active IRON, FERROUS SULFATE, ORAL Take 1 tablet by mouth 2 (two) times a day. 2 Active bisacodyL (Dulcolax, bisacodyl,) 5 mg EC tablet Take 4 tabs by mouth right before beginning bowel prep. Follow instructions given by office for timing. 2 Active fluticasone-ume clidinium-vilan terol (Trelegy Ellipta) 100-62.5-25 mcg inhaler 1 Active lisinopriL (PRINIVIL,ZESTR IL) 10 mg tablet Take 1 tablet (10 mg total) by mouth 1 (one) time each day. 1 Active sertraline (ZOLOFT) 100 mg tablet Take 1 tablet (100 mg total) by mouth 1 (one) time each day. 1 Active benzonatate (TESSALON) 100 mg capsule Take 1 capsule (100 mg total) by mouth at bedtime as needed for cough. 1 Active albuterol HFA (PROAIR HFA ; PROVENTIL HFA ; VENTOLIN HFA) 90 mcg/actuation inhaler Inhale 2 puffs by mouth every 4 (four) hours if needed for wheezing (Cough). 1 Active umeclidinium-vi lanteroL (ANORO ELLIPTA) 62.5-25 mcg/actuation inhaler Inhale 1 puff by mouth 1 (one) time each day. Active naltrexone (DEPADE) 50 mg tablet Take 1 tablet (50 mg total) by mouth 1 (one) time each day. Active calcium carbonate (CALCIUM 600 ORAL) Take by mouth. Activ e cholecalciferol (VITAMIN D-3) 25 mcg (1,000 unit) tablet Take by mouth. Ac tive inhalat.spacing dev,large mask spacer Inhale 1 Device into the lungs as needed (With inhaler). 9 Active Active Problems Problem Noted Date Diagnosed Date Chronic Yang ulcer 10/28/2021 Distal radial fracture 09/05/2021 Overview (09/07/2024): Right wrist with associated ulnar styloid fracture 08/12/2021 Moderate episode of recurren t major depressive disorder ([facility] V24, [facility] V28) 08/17/2019 Bilateral hearing loss 06/22/2019 Ascending aorta dilatation ([facility] V24) 019 Overview (09/07/2024): CT chest showed ascending aorta 3.7cm Fatty liver 11/03/2018 Large hiatal hernia 11/03/2018 Lung nodules 11/03/2018 Overview (09/07/2024): Repeat due summer in 2019 Anxiety 10/21/2018 Essential hypertension 07/15/2018 Alcohol abuse 07/08/2018 Pulmonary emphysema ([facility] V24, [facility] V28) 1 08/21/2017 Insomnia 12/24/2017 Osteopenia 12/24/2017 Overview (09/07/2024): DEXA 07/26/09 Sensorineural hearing loss (SNHL), bilateral Vitamin D deficiency 12/24/2017 Breast cyst 04/16/2016 Overview (09/07/2024): 2008, 2009, ultrasound, Dr. Foote Corneal scar 04/16/2016 Hyperlipidemia 04/16/2016 Hypothyroidism 04/16/2016 Immunizations Immunization Administration Dates Next Due Influenza Quadravalent, MDCK , 0.5ml, preservative free (Flucelvax) 6mo and older 04/17/2021 Influenza trivalent, 0.5mL, preservative free (Fluarix; FluLaval; Fluzone) ages 6mo and older (Afluria) 3 years and older 06/08/2022 Moderna (age 6mo & older) Bi valent, COVID-19, 0.5 mL or 0.25 mL dosage 05/10/2022 Instapio SARS-CoV-2 COVID-19, mRNA, LNP-S, preservative free 11/07/2020,10/17/2020 Pneumococcal polysaccharide 23 valent (Pneumovax 23) 2yo and older 06/13/2020 Td Tetanus diptheria (Tdvax) 7yo and older 04/17 Tdap Tetanus diptheria acell ular pertussis (Boostrix; Adacel) 7yo and older 07/09/2009 Surgical History Surgery Date Site/Laterality Comments BACK SURGERY 1998 PROCEDURE: HISTORICAL BACK SURGERY; COMMENT: Lumbar diskectomy COLONOSCOPY 10/01/2009 PROCEDURE: HISTORICAL COLONOSCOPY; COMMENT: two 2 mm polyps of the rectosigmoid colon noted. Pathology not available. BREAST BIOPSY PROCEDURE: BX BREAST; PERC NEEDLE CORE W/IMAG GUID; COMMENT: pt states bx over 10 years ago- unsure which side, pt states it came back neg COLONOSCOPY 08/03/2019 PROCEDURE: HISTORICAL COLONOSCOPY; COMMENT: Dr. Kohler -grade 1 internal hemorrhoids, otherwise unremarkable. Repeat 10 years. Medical History Medical History Date Comments Hyperlipidemia 12/24/2017 DX:Hyperlipidemi a Breast cyst 12/24/2017 DX:Breast cyst Cornea scar 12/24/2017 DX:Cornea scar History of colon polyps 12/24/2017 DX:Histo ry of colon polyps; COMMENT: 2/23/10 - 2 sessile polyps recto -sigmoid colon. 2 mm size. Family history of colonic polyps Hypothyroidism 12/24/2017 DX:Hypothyroidis m Insomnia 12/24/2017 DX:Insomnia Osteopenia 12/24/2017 DX:Osteopenia; C OMMENT: DEXA 07/26/09 Sensorineural hearing loss ( SNHL), bilateral 12/24/2017 DX:Sensorineural hearing los s (SNHL), bilateral Vitamin D deficiency 12/24/2017 DX:Vitamin D deficiency Fatty liver 11/03/2018 DX:Fatty liver Hiatal hernia 11/03/2018 DX:Hiatal hernia Lung nodules 11/03/2018 DX:Lung nodules; COMMENT: Repeat due summer in 2018 Breast cyst 04/16/2016 Family History Medical History Relation Name Comments No Known Problems Brother 1 No Known Problems Father Lung cancer Maternal Grandfather Breast cancer Maternal Grandmother Heart failure Maternal Grandmother No Known Problems Mother No Known Problems Sister Cervical cancer Neg Hx Colon cancer Neg Hx Ovarian cancer Neg Hx Pancreatic cancer Neg Hx Prostate cancer Neg Hx Uterine cancer Neg Hx Relation Name Status Comments Brother 1 Alive Brother 2 Alive Father Maternal Grandfather Maternal Grandmother Mother Alive Paternal Grandfather Paternal Grandmother Sister Alive Social History Tobacco Use Types Packs/Day Years Used Date Smoking Tobacco: Light Smoker Cigarettes Smokeless Tobacco: Never Alcohol Use Standard Drinks/Week Comments Yes 0 (1 standard drink = 0.6 oz pur e alcohol) Comments Unknown Sex and Gender Information Value Date Recorded Sex Assigned at Female 03/04/2025 12:55 PM EDT Legal Sex Female 6:52 AM EST Gender Identity Not on file Sexual Orientation Not on file Obstetrics History Last Filed Vital Signs Vital Sign Reading Time Taken Comments Blood Pressure 123/85 06/25/2022 8:48 AM EST Pulse 70 06/25/2022 8:48 AM EST Temperature - - Respiratory Rate - - Oxygen Saturation - - Inhaled Oxygen Concentration - - Weight 91.7 kg (202 lb 1.9 oz) 11/21/2021 2:23 P M EDT Height 162.6 cm (5' 4 ) 11/21/2021 2:23 PM EDT Body Mass Index 34.69 11/21/2021 2:23 PM EDT Plan of Treatment Health Maintenance Due Date Last Done Comments Hepatitis A Vaccines (1 of 2 - Risk 2-dose series) 1977 Zoster Vaccines (1 of 2) 1977 RSV Immunization Adult Patients (1 - Risk 50-74 years 1-dose series) 2008 Pneumococcal Vaccine: 50+ Years (2 of 2 - PCV) 06/13/2021 06/13/2020 Medicare Annual Wellness Visit 07/17/2022 Social Influencers of Health Screening 07/17/2022 Hypertension/CHF/CAD Annual BMP Blood Test 07/22/2022 09/16/2020 Cholesterol Screening (Lipid Panel) 06/22/2023 06/22/2018 Falls Risk Assessment 12/01/2023 Depression Screening 08/09/2024 Breast Cancer Screening 09/25/2024 09/25/19 23, 09/19/2021, 09/16/2020, Additional history exists COVID-19 Vaccine ( season) 2025 05/10/2022, 11/07/2020, 10/17/2020 Influenza Vaccine (#1) 2025 06/08/2022, 2020 Colorectal Cancer Screening: Colonoscopy 09/24/2026 09/24/2021 Osteoporosis Screening (Bone Density Screening) 09/01/2028 09/01/2018 DTaP,Tdap,and Td Vaccines (3 - Td or Tdap) 04/17/2031 04/17/2021, 07/09/2009 Hepatitis C Screening Completed 06/22/2018 HIB Vaccines Aged Out No longer eligi ble based on patient's age to complete this topic HPV Vaccines Aged Out No longer eligi ble based on patient's age to complete this topic Hepatitis B Vaccines Aged Out No long er eligible based on patient's age to complete this topic IPV Vaccines Aged Out No longer eligi ble based on patient's age to complete this topic MMR Vaccines Aged Out No longer eligi ble based on patient's age to complete this topic Meningococcal ACWY Vaccine Aged Out N o longer eligible based on patient's age to complete this topic Meningococcal B Vaccine Aged Out No l onger eligible based on patient's age to complete this topic RSV Immunization Patients Under 20 months Aged Out No longer eligible based on patient's age to complete this topic Varicella Vaccines Aged Out No longer eligible based on patient's age to complete this topic Procedures Procedure Name Priority Date/Time Associated Diagnosis Comments SCREENING MAMMOGRAPHY BI 2-VIEW BREAST INC CAD Routine 09/25/2022 1:37 PM EST Encounter for other screening for malignant neoplasm of breast COLONOSCOPY Routine 09/24/2021 ANNUAL BMP BLOOD TEST Routine 09/16/2020 DXA BONE DENSITY STUDY 1+ SITS AXIAL SKEL Routine 09/01/2018 2:14 PM EST Encounter for screening for osteoporosis HEPATITIS C SCREENING Routine 06/22/2018 LIPID PANEL Routine 06/22/2018 from Last 3 Months or Most Recently Relevant to Health Maintenance Results * SCREENING MAMMOGRAPHY BI 2-VIEW BREAST INC CAD (09/25/2022 1:37 PM EST) Anatomical Region Laterality Modality Radiographic Malinda ging 09/19/2021 1:56 PM EST Narrative 09/26/2022 2:19 PM EST This is a summary report. The complete report is available in the patient's medical record. If you cannot access the medical record, please contact the sending organization for a detailed fax or copy. Full field digital screening 2D and tomosynthesis mammography, reviewed with CAD and compared to previous. The breasts are composed of fatty and fibroglandular tissue. No suspicious mass, architectural distortion or suspicious calcifications are identified. IMPRESSION: : No mammographic evidence of malignancy. BIRADS 1-Negative; N. 5 year breast cancer risk assessment 2.0 % Lifetime breast cancer risk assessment 8.5 % Breast cancer risk category Low (<15%) Procedure Note Michelle Castano MD - 09/13/2023 This is a summary report. The complete report is available in thepatient's medical record. If you cannot access the medical record, pleasecontact the sending organization for a detailed fax or copy. Full field digital screening 2D and tomosynthesis mammography, reviewedwith CAD and compared to previous. The breasts are composed of fatty andfibroglandular tissue. No suspicious mass, architectural distortion orsuspicious calcifications are identified. IMPRESSION: : No mammographic evidence of malignancy. BIRADS 1-Negative; N. 5 year breast cancer risk assessment 2.0 % Lifetime breast cancer risk assessment 8.5 % Breast cancer risk category Low (<15%) Nasrin Snell MD IMG XR PROCEDURES Final Result * Colonoscopy (09/24/2021) Pathologist [facility] Colonoscopy Abstracted, No Interpretation Anatomical Region Laterality Modality Other Historical Provider HEALTH MAINTENANCE Final Result * Annual BMP Blood Test (09/16/2020) [facility] Annual BMP Blood Test Abstracted Historical Provider HEALTH MAINTENANCE Final Result * DXA BONE DENSITY STUDY 1+ SITS AXIAL SKEL (09/01/2018 2:14 PM EST) Anatomical Region Laterality Modality Bone Densitometr y 06/21/2018 10:5 3 AM EST Narrative 09/01/2018 4:05 PM EST DEXA SCAN: Lumbar Spine T-score is -2.2. (SD relative to 20-29 y/o adult) Z-score is -0.8. (SD relative to age matched peers) This is considered osteopenia by WHO criteria. Left Femoral Neck T-score is -1.6. Z-score is -0.3. This is considered osteopenia by WHO criteria. Comparison exam(s): None available. IMPRESSION: Osteopenia by WHO criteria. This patient has a less than 0.1% risk of major osteoporotic fracture and a less than 0.1% risk of hip fracture over the next 10 years. (World Health Organization Fracture Risk Assessment) The [facility] Department of Internal Medicine recommends using National Osteoporosis Foundation (NOF) guidelines in treatment decisions related to osteoporosis. NOF guidelines suggest considering treatment for postmenopausal women and men aged 50 or older presenting with the following: History of hip or vertebral fracture. T-score = -2.5 (DXA) at the femoral neck, total hip, or spine, after appropriate evaluation to exclude secondary causes. Low bone mass (T-score between -1.0 and -2.5 at the femoral neck or spine) AND a 10-year probability of a hip fracture = 3% OR a 10-year probability of a major osteoporosis-related fracture = 20% based on the [place]-adapted WHO algorithm Please note that all treatment decisions require clinical judgment and consideration of individual patient factors, including patient preferences, co-morbidities, previous drug use, risk factors not captured in the FRAX model (e.g., frailty, falls, vitamin D deficiency, increased bone turnover, interval significant decline in bone density) and possible under- or over-estimation of fracture risk by FRAX. Optional alternative screening schedule based on ykle Barboza., [facility] August 27, 2011 for patients with osteopenia (based on hip BMD T-score) is as follows: * advanced osteopenia (T scores -2.00 to -2.49), BMD testing every year * moderate osteopenia (T scores -1.50 to -1.99), BMD testing every 5 years mild osteopenia or normal BMD (T scores -1.50 and higher), BMD testing every 15 years Procedure Note Raven oHok, DO - 07/28/2022 DEXA SCAN: Lumbar Spine T-score is -2.2. (SD relative to 20-29 y/o adult) Z-score is -0.8. (SD relative to age matched peers) This is considered osteopenia by WHO criteria. Left Femoral Neck T-score is -1.6. Z-score is -0.3. This is considered osteopenia by WHO criteria. Comparison exam(s): None available. IMPRESSION: Osteopenia by WHO criteria. This patient has a less than 0.1% risk ofmajor osteoporotic fracture and a less than 0.1% risk of hip fracture over thenext 10 years. (World Health Organization Fracture Risk Assessment) The [facility] Department of Internal Medicine recommendsusing National Osteoporosis Foundation (NOF) guidelines in treatment decisions related toosteoporosis. NOF guidelines suggest considering treatment for postmenopausal women and menaged 50 or older presenting with the following: History of hip or vertebral fracture. T-score = -2.5 (DXA) at the femoral neck, total hip, or spine, afterappropriate evaluation to exclude secondary causes. Low bone mass (T-score between -1.0 and -2.5 at the femoral neck or spine)AND a 10-year probability of a hip fracture = 3% OR a 10-year probability of a majorosteoporosis-related fracture = 20% based on the [place]-adapted WHO algorithm Please note that all treatment decisions require clinical judgment andconsideration of individual patient factors, including patient preferences, co- morbidities,previous drug use, risk factors not captured in the FRAX model (e.g., frailty, falls, vitaminD deficiency, increased bone turnover, interval significant decline in bone density) andpossible under- or over-estimation of fracture risk by FRAX. Optional alternative screening schedule based on kyle Barboza., NEJJanuary 2011 for patients with osteopenia (based on hip BMD T-score) is as follows: * advanced osteopenia (T scores -2.00 to -2.49), BMD testing every year * moderate osteopenia (T scores -1.50 to -1.99), BMD testing every 5years mild osteopenia or normal BMD (T scores -1.50 and higher), BMD testingevery 15 years Lobito Charles CNM IMG DXA PROCEDURES Final Resul t * Hepatitis C Screening (06/22/2018) [facility] Hepatitis C Screening Abstracted Historical Provider HEALTH MAINTENANCE Final Result * Lipid panel (06/22/2018) [facility] LDL/HDL Ratio 2 0 - 4 Triglycerides 45 0 - 150 mg/dL Cholesterol 177 0 - 200 mg/dL HDL 83 >=40 mg/dL LDL Cholesterol 85 0 - 100 mg/dL Blood Venous blood specimen / Unknown Historical Provider LAB BLOOD ORDERABLES Bessie l Result from Last 3 Months or Most Recently Relevant to Health Maintenance Insurance MEDICARE MEDICAID - [place] Advance Directives Documents on File Type Date Recorded Patient Cpc Coder Expl anation Health Care Decision (hx) 09/17/2022 AD REYES DIRECTIVE Health Care Decision (hx) 09/17/2022 AD REYES DIRECTIVE Health Care Decision (hx) 09/17/2022 AD REYES DIRECTIVE Health Care Decision (hx) 09/17/2022 AD REYES DIRECTIVE Health Care Decision (hx) 09/17/2022 AD REYES DIRECTIVE Health Care Decision (hx) 09/17/2022 AD REYES DIRECTIVE Health Care Decision (hx) 09/17/2022 AD REYES DIRECTIVE Health Care Decision (hx) 09/17/2022 AD REYES DIRECTIVE Health Care Decision (hx) 09/17/2022 AD REYES DIRECTIVE Health Care Decision (hx) 05/18/2022 AD REYES DIRECTIVE Health Care Decision (hx) 05/18/2022 AD REYES DIRECTIVE Health Care Decision (hx) 05/18/2022 AD REYES DIRECTIVE Health Care Decision (hx) 05/18/2022 AD REYES DIRECTIVE Health Care Decision (hx) 05/18/2022 AD REYES DIRECTIVE Care Teams Forgeman Helper Relationship Specialty Start Date End Date Nasrin Snell MD PCP - General Internal Medicine 03/20/21
--- OUTSIDE RECORDS SUMMARY | 2025-07-13 06:33 | XMS_ITS | Clinical Summary ---
Author Organization [facility] Prior to 01/06/[address] [place], [place] [id number] Care Team Providers Care Investment Representative Name Role Phone Sanchez Robledo MD Primary Care Provider Allergies Active Allergy Reactions Criticality Noted Date Comments Codeine 04/16/2016 Methylprednisolone 04/16/2016 Local reaction (itch at injection site) Sulfa Antibiotics 04/16/2016 Medications Medication Sig Dispensed Refills Start Date End Date Status levothyroxine (SYNTHROID, LEVOXYL) tablet 50 mcg Take one tablet daily. 90 tablet 3 04/08/2016 Active budesonide-formoterol (SYMBICORT) 160-4.5 MCG/ACT inhaler Inhale 2 puffs into the lungs 2 (two) times a day. 0 Active cholecalciferol (VITAMIN D3) 1000 UNITS tablet Take 1,000 Units by mouth daily. 0 Active ibuprofen (ADVIL,MOTRIN) 800 MG tablet Take by mouth every 8 (eight) hours as needed for pain. 0 Active Calcium Carbonate (CALCIUM 600 PO) Take by mouth daily. 0 Active Active Problems Problem Noted Date Diagnosed Date Primary insomnia 04/28/2016 Smoker 04/16/2016 Low vitamin D level 04/16/2016 Overview: 2010 (20) Hypothyroidism 04/16/2016 Hyperlipidemia 04/16/2016 Corneal scar 04/16/2016 Breast cyst 04/16/2016 Overview: 2008, 2009, ultrasound, Dr. Foote Elevated glucose 04/16/2016 Immunizations Name Administration Dates Next Due Tdap 07/09/2009 Family History Medical History Relation Name Comments Arthritis Mother Hypertension Mother Hepatitis Sister Hyperlipidemia Sister Hypertension Sister Relation Name Status Comments Mother Alive Sister Alive Social History Tobacco Use Types Packs/Day Years Used Date Smoking Tobacco: Every Day Alcohol Use Standard Drinks/Week Comments Yes 0 (1 standard drink = 0.6 oz pur e alcohol) Sex and Gender Information Value Date Recorded Sex Assigned at Not on file Gender Identity Not on file Sexual Orientation Not on file Job Start Date Occupation Industry Not on file Not on file Not on file Last Filed Vital Signs Vital Sign Reading Time Taken Comments Blood Pressure 134/84 04/28/2016 3:59 PM EDT Pulse 76 04/28/2016 3:59 PM EDT Temperature - - Respiratory Rate - - Oxygen Saturation - - Inhaled Oxygen Concentration - - Weight 73.9 kg (163 lb) 04/28/2016 3:59 PM EDT Height 162.6 cm (5' 4 ) 04/28/2016 3:59 PM EDT Body Mass Index 27.98 04/28/2016 3:59 PM EDT Plan of Treatment Health Maintenance Due Date Last Done Comments Hepatitis C Screening 1958 Depression Screening 1970 Preventative Health Evaluation 1976 Shingrix-Zoster Vaccine (1 o f 2) 1977 Breast Cancer Screening (Mammogram) 2008 DTap / Tdap / Td (2 - Td or Tdap) 07/09/2019 07/09/2009 Colon Cancer Screening (Colonoscopy) 09/09/2019 09/09/2009 COVID-19 Vaccine (3 - Pfizer risk series) 12/05/2020 11/07/2020, 10/17/2020 Pneumococcal Vaccine (2 of 2 - PCV) 06/13/2021 06/13/2020 Fall Risk Assessment 12/01/2023 Osteoporosis Screening (DEXA Scan) 12/01/2023 07/09/2009 Influenza Vaccine (#1) 2025 2, 04/17/2021 RSV Adult > 60+ Yrs or (1 - 1-dose 75+ series) 2033 Hepatitis B Vaccines Aged Out No long er eligible based on patient's age to complete this topic RSV Ped < 20 months Aged Out No longe r eligible based on patient's age to complete this topic Insurance Payer Benefit Plan / Group Subscriber ID Effective Dates Phone Address [facility] [id number] 2021-Prese nt [address] [place] [address] [place]MO [place] [id number] 2022-Pr e sent [address] [place] [address] Medicaid Care Teams Investment Representative Relationship Specialty Start Date End Date Sanchez Robledo MD PCP - General Internal Medicine 04/22/16
[2025-07-13 06:43] LABS: Hematocrit 39.8 % (37.0-47.0); Hemoglobin 13.1 g/dl (12.0-16.0); Imm Gran Abs Auto 0.01 X10*3/uL (0.00-0.03); Imm Gran Pct Auto 0.2 % (0.0-0.4); Lymphocytes Absolute Auto 1.5 X10*3/uL (1.2-4.9); Mean Corpuscular HGB Conc 32.9 g/dl (31.0-35.0); Mean Corpuscular Hemoglobin 32.0 pg (27.0-33.0); Mean Corpuscular Volume 97.1 fL (80.0-98.0); NRBC Abs Auto 0.000 X10*3/uL (0.0-0.012); NRBC Pct Auto 0.0 /100WBC (0.0-0.2); Platelet Count 152 X10*3/uL (160-400); Red Blood Count 4.10 X10*6/uL (4.20-5.50); White Blood Count 4.9 X10*3/uL (4.8-10.8)
[2025-07-13 07:22] LABS: Anion Gap 13 (12-20); Blood Urea Nitrogen 9 mg/dL (9-16); Calcium 8.9 mg/dL (8.4-10.2); Carbon Dioxide 28 mmol/L (22-29); Chloride 108 mmol/L (96-108); Estimated Glomerular Filt Rate > 60; Potassium 3.8 mmol/L (3.3-5.1); Sodium 145 mmol/L (135-145)
== END 2025-07-13 06:30 | disposition home or self-care (01) ==
LOC: HO.MMNH2L 06:29
PROVIDERS: Visit Provider Physician Assistant Medical
DX: F22 Delusional disorders (principal); D64.9 Anemia, unspecified
CPT/HCPCS: 36415; 80048; 85025